=== PATIENT | female | born 1995 | race African-American/Black ===

== ENCOUNTER 2024-11-26 08:01 | Emergency (ER) | payer SELFPAY ==
--- NOTE | 2024-11-26 08:05 | ECG_ITS ---
Test Date: 2024-11-26 08:16:22 Measurements Intervals [place] Rate: 90 P: 48 VT: 156 QRS: 21 QRSD: 90 T: 24 QT: 357 QTc: 438 Interpretive Statements SINUS RHYTHM WITH SINUS ARRHYTHMIA NORMAL ECG No previous ECG available for comparison Electronically Signed On 11-26-2024 08:18:40 COMPUTERIZED TABLE CUTTER by Tod Hollins D.O.
--- OUTSIDE RECORDS SUMMARY | 2024-11-26 08:05 | XMS_ITS | Data Portability ---
Author Organization [facility] Address [address] [place] [address] Care Team Providers Care Cover Operator Name Role Phone MONICO ARMANI Primary Care Provider Assessment No assessment recorded. Plan of Treatment Reminders Order Date Submit Date Provider Last Modified By Organization Details Last Modified Time Details Appointments None recorded. Lab bacterial vaginosis + vaginitis panel, vaginal 2020 021 [place] [facility], [address], [place], [address], 10:11:49 cytology report, thin prep, smear or scraping, cervical or vaginal 2020 021 [place] [facility], [address], [place], [address], 15:10:48 test, urine 2020 [place] In-Office Order, Internal Use Only DO Not Attach Compendium DO Not Attach Compendium, Do Not Delete/merge, [id number] 12:06:12 Referral None recorded. Procedures None recorded. Surgeries None recorded. Imaging None recorded. Medication Orders hydroxyzin e HCl 25 mg tablet 2020 021 [id number], [address], [place], [id number], 09:27:28 sertraline 50 mg tablet 2020 021 [facility] #[id number], [address] [place], [place], [id number], 09:27:19 cyclobenza dena 10 mg tablet 2020 [facility] #[id number], [address] [place], [place], [id number], 10:37:51 Debrox 6.5 % ear drops 2020 [id number], [address] [place], [place], [id number], 11:11:28 Xulane 150 mcg-35 mcg/24 hr transderma l patch [address] [id number], [address] [place], [place], [id number], 11:55:39 Patient TargetsNo targets recorded. Patient Instructions Encounter Date Encounter Id Patient Instructions Last Modified By Organization Details Last Modified Time 04/04/2021 [id number] tonsil stones: care instructions Not available 04/04/2021 11:15:51 09/29/2021 [id number] tonsil stones: care instructions Not available 09/29/2021 11:33:08 learning about control: the patch Not available 09/29/2021 11:32:03 Reason for Referral None Reported. Results Created Date Observation Date Name Description Value Unit Range Abnormal Flag Note LastModifiedBy Organization Detail LastModifiedTime 04/08/20 21 04/09/2021 cytol ogy repor t, thin prep, smear or scrap ing, cervi gal or vagin al diagnosis: COMMEN T NEGAT JAVED FOR INTRA EPITH ELIAL LESIO N OR MALIG KATIE . Not Available [facility] ([facility] [address] [facility] [place], [address], 04/09/2021 15:10:48 04/08/20 21 04/09/2021 cytol ogy repor t, thin prep, smear or scrap ing, cervi gal or vagin al specimen adequacy: MARLO Langford Satis facto ry for evalu ation . Endoc ervic al and/o r squam ous metap lasti c cells (endo cervi gal compo nent) are prese nt. Not Available [facility] ([facility]) [address] [place], [address], 04/09/2021 15:10:48 04/08/20 21 04/09/2021 cytol ogy repor t, thin prep, smear or scrap ing, cervi gal or vagin al clinician provided ICD10: MARLO Langford Z01.4 19 Not Available [facility] ([facility]) [address] [place], [address], 04/09/2021 15:10:48 04/08/20 21 04/09/2021 cytol ogy repor t, thin prep, smear or scrap ing, cervi gal or vagin al performed by: Pauline Gao (ASCP ) Not Available [facility] ([facility]) [address] [place], [address], 04/09/2021 15:10:48 04/08/20 21 04/09/2021 cytol ogy repor t, thin prep, smear or scrap ing, cervi gal or vagin al . . Not Available [facility] ([facility]) [address] [place], [address], 04/09/2021 15:10:48 04/08/20 21 04/09/2021 cytol ogy repor t, thin prep, smear or scrap ing, cervi gal or vagin al note: MARLO Langford The Pap smear is a scree bethanie test desolvin marie to aid in the detec tion of sudarshan ligna nt and malig nant condi tions of the uteri ne cervi x. It is not a diagn ostic proce dure and shoul d not be used as the sole means of detec ting cervi gal cance r. Both false -posi tive and false -nega tive repor ts do occur . Not Available [facility] ([facility]) [address] [place], [address], 04/09/2021 15:10:48 04/08/2004/09/2021 cytol ogy repor t, thin prep, smear or scrap ing, cervi gal or vagin al test methodology: COMMEN T This liqui d based ThinP rep(R ) pap test was randa marie with the use of an image guide robin pantoja. Not Available [facility] ([facility]) [address] [place], [address], 04/09/2021 15:10:48 04/08/2004/09/2021 cytol ogy repor t, thin prep, smear or scrap ing, cervi gal or vagin al . COMMEN T The HPV DNA refle x crite natty were not met with this speci men resul t there fore, no HPV testi ng was perfo rmed. Not Available [facility] ([facility]) [address] [place], [address], 04/09/2021 15:10:48 04/08/2004/11/2021 NUSWA B VAGIN ITIS PLUS (VG+) atopobium vaginae LOW - 0 score Not Available [facility] ([facility]) [address] [place], [address], 04/11/2021 10:11:49 04/08/2004/11/2021 NUSWA B VAGIN ITIS PLUS (VG+) bvab 2 LOW - 0 score Not Available [facility] ([facility]) [address] [place], [address], 04/11/2021 10:11:49 04/08/20 21 04/11/2021 NUSWA B VAGIN ITIS PLUS (VG+) megasphaera 1 LOW - 0 score Calcu late total score by nathaniel blankenship the 3 indiv idual bacte rial vagin osis (BV) marke r score s toget her. Total score is inter prete d as follo ws: Total score 0-1: Indic ates the absen ce of BV. Total score 2: Indet ermin ate for BV. Addit ional clini gal data shoul d be evalu ated to estab heide a diagn osis. Total score 3-6: Indic ates the prese nce of BV. This test was devel oped and its perfo rmanc e naun cteri stics deter mined by [facility]. It has not been clear ed or appro patsy by the Food and Drug Admin istra tion. Not Available [facility] ([facility]) [address] [place], [address], 04/11/2021 10:11:49 04/08/2004/11/2021 NUSWA B VAGIN ITIS PLUS (VG+) cathy albicans, ANN NEGATI VE negati ve Not Available [facility] ([facility]) [address] [place], [address], 04/11/2021 10:11:49 04/08/2004/11/2021 NUSWA B VAGIN ITIS PLUS (VG+) cathy glabrata, ANN NEGATI VE negati ve Not Available [facility] ([facility]) [address] [place], [address], 04/11/2021 10:11:49 04/08/2004/11/2021 NUSWA B VAGIN ITIS PLUS (VG+) trich vag by ANN NEGATI VE negati ve Not Available [facility] ([facility]) [address] [place], [address], 04/11/2021 10:11:49 04/08/20 21 04/11/2021 NUA B VAGIN ITIS PLUS (VG+) chlamydia trachomatis, ANN NEGATI VE negati ve Not Available [facility] ([facility]) [address] [facility], [place], [address], 04/11/2021 10:11:49 04/08/20 21 04/11/2021 NUA B VAGIN ITIS PLUS (VG+) neisseria gonorrhoeae, ANN NEGATI VE negati ve Not Available [facility] ([facility]) [address] [facility], [place], [address], 04/11/2021 10:11:49 09/29/2009/29/2021 pregn sourav test, urine HCG negati ve Not Available In-Office Order Internal Use Only DO Not Attach Compendium DO Not Attach Compendium, Do Not Delete/merge, [id number] 09/29/2021 11:31:50 Result Notes None recorded. Problems Name Problem SNOMED Code Status Onset Date Resolution Date Notes Provider Name and Address Organization Details Recorded Time Dyspareunia 81873205 Active 2017 C[place] - [facility] 8 11:05:23 Bacterial vaginosis 516139926 Completed 201701/29/2020 JOSE ENRIQUE VALERIO Attn: Gaurang blankenship,[address] [place], [address], [place] [facility] 0 14:08:16 Dysuria 41794783 Completed 01/29/2020 JOSE ENRIQUE VALERIO Attn: Gaurang blankenship,[address] [place], [address], [place] [facility] 0 14:12:42 Acute lower urinary tract infection 008603150 Completed 01/29/2020 JOSE ENRIQUE VALERIO Attn: Gaurang blankenship,[address] [place], [address], [place] [facility] 0 14:08:12 Amenorrhea 93849160 Active [place] [facility] 6 18:30:41 Stillbirth 550113271 Completed 2012 Tamera Muir [place], [place] [facility] 7 14:57:17 Past history of stillbirth 565957235 Active Matthew Borjas LPN [place], [place] [facility] 6 16:04:39 Past history of gestational diabetes mellitus 938894585 Active Cb Mccull[place] [facility] [place] 18:30:41 Deliveries by Active Tamera Mu[place] [facility] [place] 14:57:17 Deliveries by [id number] Completed Tamera Mu[place] [facility] [place] 14:57:17 Candidiasis of vagina 79022113 Completed 01/29/2020 JOSE ENRIQUE VALERIO Attn: Gaurang blankenship,[address] [place], [address], [place] [facility] 0 14:12:51 Candidiasis of vagina 03777530 Completed Tamera Mu[place] [facility] 7 14:57:17 Thyroid function tests abnormal 006162940 Active Tamera [place] [facility] [place] 14:57:17 Thyroid function tests abnormal 549713688 Completed Tamera [place] [facility] [place] 14:57:17 Vitamin D deficiency 30039038 Active Tamera [place] [facility] [place] 14:57:17 Vitamin D deficiency 97418349 Completed Tamera [place] [facility] [place] 14:57:17 Abnormal cervical Papanicolao u smear 341287319 Completed 2015 lgsil Tamera Mu[place] [facility] [place] 14:57:17 HPV - Human papillomavi parker test positive Completed 2015 Tamera [place] [facility] [place] 14:57:17 Gestational diabetes mellitus 08780962 Completed 03/07/2020 JOSE ENRIQUE VALERIO Attn: Gaurang blankenship,[address] [facility], [place], [address], [place] [facility] 0 10:11:58 Gestational diabetes mellitus 70144518 Completed Tamera Muir null, [facility] 7 14:57:17 Problem Notes None recorded. Procedures Surgical History Date Name Laterality Status Provider Name and Address Organization Details Recorded Time 0 IUD Removal completed JOSE ENRIQUE VALERIO Attn: Accounting,[address] [facility], [place], [address], [facility] [place] 03/07/2020 11:20:57 8 Date of Last Pap Smear completed Demi Zuluaga MA [facility] 06/22/2018 12:19:22 7 IUD Insertion completed Demi Zuluaga MA [facility] 12/28/2016 12:22:08 6 SECTION (SURG) completed Cb Mccullough [facility] 09/11/2016 20:55:43 5 Control Implant Removal completed Cb Mccullough [facility] 06/20/2015 17:01:50 4 Caesarean Section completed Vargas Gary RN [facility] 06/20/2015 13:01:48 Imaging Results None recorded. Procedure Notes None recorded. Medical Equipment None Reported. Allergies No known drug allergies Medications Name Sig Start Date Stop Date Status Note LastModified by Organization Details LastModified Time multivitami n tablet Take 1 tablet every day by oral route. 01/25 completed Not Available Not Available Not Available cyclobenzap rine 10 mg tablet TAKE 1 TABLET BY MOUTH DAILY AT BEDTIME NEEDED FOR BACK SPASMS 04/04 completed Not Available Not Available Not Available amoxicillin 500 mg capsule take one capsule by mouth four times daily 10/15 completed Not Available Not Available Not Available clindamycin HCl 300 mg capsule 12/28 completed Not Available Not Available Not Available cetirizine 10 mg tablet TK 1 T PO D 10/15 completed Not Available Not Available Not Available azithromyci n 250 mg tablet TAKE 2 TABLETS (500 MG) BY ORAL ROUTE ONCE DAILY FOR 1 DAY THEN 1 TABLET (250 MG) BY ORAL ROUTE ONCE DAILY FOR 4 DAYS 10/31 completed Not Available Not Available Not Available ibuprofen 800 mg tablet TAKE 1 TABLET BY MOUTH THREE TIMES DAILY NEEDED FOR CRAMPS 01/28 completed Not Available Not Available Not Available fluconazole 150 mg tablet Take 1 tablet every day by oral route. 10/31 completed Not Available Not Available Not Available ranitidine 300 mg tablet Take 1 tablet every day by oral route at bedtime. 12/28 completed Not Available Not Available Not Available prednisone 20 mg tablet 10/31 completed Not Available Not Available Not Available ceftriaxone 250 mg solution for injection Take 250 mg by injection route. 10/31 completed Not Available Not Available Not Available metronidazo le 500 mg tablet Take 1 tablet twice a day by oral route as directed for 7 days. 10/15 completed Not Available Not Available Not Available ciprofloxac in 500 mg tablet active Not Available Not Available Not Available sulfamethox azole 800 mg-trimetho prim 160 mg tablet 12/28 completed Not Available Not Available Not Available aspirin 81 mg tablet,carmen yed release Take 1 tablet every day by oral route. 10/06 completed Not Available Not Available Not Available tramadol 50 mg tablet active Not Available Not Available No t Available Condoms-Pre m Lubricated Take 1 device as needed by miscell. route. 10/31 completed Not Available Not Available Not Available Vitamin tablet Take 1 tablet every day by oral route as directed for 90 days. 12/28 completed Not Available Not Available Not Available oxycodone-a cetaminophe n 5 mg-325 mg tablet Take 1 tablet every 6 hours by oral route. 10/31 completed Not Available Not Available Not Available dicyclomine 20 mg tablet Take 1 tablet 4 times a day by oral route. 02/01 completed Not Available Not Available Not Available Ear Wax Removal Drops 6.5 % INSTILL 5 DROPS INTO AFFECTED EAR(S) BY OTIC ROUTE 2 TIMES PER DAY X 4 DAYS 09/29 completed Not Available Not Available Not Available cephalexin 500 mg capsule Take 1 capsule every 12 hours by oral route for 10 days. active Not Available Not Available No t Available ferrous sulfate 325 mg (65 mg iron) tablet Take 1 tablet twice a day by oral route. 12/28 completed Not Available Not Available Not Available ranitidine 150 mg tablet Take 1 tablet twice a day by oral route. 12/28 completed Not Available Not Available Not Available Humulin N NPH U-100 Insulin (isophane susp) 100 unit/mL subcutaneou s 10/06 completed Not Available Not Available Not Available progesteron e micronized 200 mg capsule Take 1 capsule every day by oral route for 30 days. 10/06 completed Not Available Not Available Not Available omeprazole 20 mg capsule,del ayed release Take 1 capsule every day by oral route. 10/31 completed Not Available Not Available Not Available diclofenac sodium 75 mg tablet,carmen yed release 01/28 completed Not Available Not Available Not Available hydroxyzine HCl 25 mg tablet TAKE 1 TABLET BY MOUTH EVERY DAY AT BEDTIME 01/29 completed Not Available Not Available Not Available mupirocin 2 % topical ointment 12/28 completed Not Available Not Available Not Available Pepcid 20 mg tablet Take 1 tablet twice a day by oral route. 10/31 completed Not Available Not Available Not Available fluticasone propionate 50 mcg/actuati on nasal spray,suspe nsion SHAKE LIQUID AND USE 1 SPRAY IN EACH NOSTRIL TWICE DAILY 09/29 completed Not Available Not Available Not Available metformin ER 500 mg tablet,exte nded release 24 hr 12/28 completed Not Available Not Available Not Available sertraline 50 mg tablet Take 1 tablet every day by oral route as directed for 30 days. 01/29 completed Not Available Not Available Not Available ParaGard T 380A 380 square mm intrauterin e device Take 1 device by intrauter ine route. 03/[address] [facility] [place]# [phone] Not Available Not Available Not Available insulin syringe U-100 with needle 0.5 mL 31 gauge x 03/02 completed Not Available Not Available Not Available loratadine 10 mg tablet Take 1 tablet every day by oral route for 30 days. 01/28 completed Not Available Not Available Not Available naproxen 500 mg tablet TAKE 1 TABLET BY MOUTH WITH FOOD EVERY 12 HOURS 01/29 completed Not Available Not Available Not Available progesteron e micronized 100 mg capsule Take 1 capsule twice a day by oral route. 12/28 completed Not Available Not Available Not Available amoxicillin 875 mg-potassiu m clavulanate 125 mg tablet TAKE 1 TABLET BY MOUTH TWICE DAILY active Not Available Not Available No t Available azithromyci n 500 mg tablet Take 1 tablet every day by oral route for 6 days. 10/31 completed Not Available Not Available Not Available Tri-Sprinte c (28) 0.18 mg(7)/0.215 mg(7)/0.25 mg(7)-35 mcg tablet Take 1 tablet every day by oral route as directed for 28 days. 04/04 completed Not Available Not Available Not Available nitrofurant oin monohydrate /macrocryst als 100 mg capsule Take 1 capsule every 12 hours by oral route as directed for 5 days. 03/07 completed Not Available Not Available Not Available lactulose 10 gram/15 mL oral solution Take 15 mL every day by oral route. 02/01 completed Not Available Not Available Not Available Oysco 500/D 500 mg-5 mcg (200 unit) tablet 01/25 completed Not Available Not Available Not Available omeprazole 20 mg tablet,carmen yed release 12/28 completed Not Available Not Available Not Available Calcium with Vitamin D 600 mg-10 mcg (400 unit) tablet Take 1 tablet twice a day by oral route. 10/31 completed Not Available Not Available Not Available Vinate One 60 mg iron-1 mg tablet 12/28 completed Not Available Not Available Not Available PrenaPlus 27 mg iron-1 mg tablet Take one tablet by by mouth daily active Not Available Not Available No t Available OneTouch Verio test strips 10/06 completed Not Available Not Available Not Available calcium 600 mg (as carbonate)- vitamin D3 20 mcg (800 unit) tablet Take 1 tablet twice a day by oral route for 30 days. 01/25 completed Not Available Not Available Not Available OneTouch Delica Lancets 30 gauge 10/06 completed Not Available Not Available Not Available Linzess 145 mcg capsule Take 1 capsule every day by oral route. 02/01 completed Not Available Not Available Not Available Super Thin Lancets 28 gauge 10/06 completed Not Available Not Available Not Available Xulane 150 mcg-35 mcg/24 hr transdermal patch APPLY 1 PATCH TO THE SKIN EVERY WEEK FOR 3 WEEKS THEN OFF FOR 1 WEEK active Not Available Not Available No t Available ID NOW COVID-19 Test Kit DIRECTED 09/29 completed Not Available Not Available Not Available Vitals Date Recorded Body height Provider Name an d Address Organization Details Last Updated DateTime 11/12/2020 157.48 cm Demi Marcelino MA [facility] 2020 14:27:36 Date Recorded Body height Provider Name an d Address Organization Details Last Updated DateTime 01/29/2021 157.48 cm Demi Marcelino MA [facility] 2020 09:26:31 Date Recorded Body height Provider Name an d Address Organization Details Last Updated DateTime 04/04/2021 157.48 cm Demi Marcelino MA [facility] 2020 10:37:41 Date Recorded Body height Body mass index (BMI) Body weight Heart rate Body temperature Oxygen saturation Oxygen saturation in Arterial blood by Pulse oximetry Systolic blood pressure Diastolic blood pressure Provider Name and Address Organization Details Last Updated DateTime 157.48 cm 37.8 kg/m2 57749.8 3 g 106 /min 98.6 [degF] 99 % 99 % 120 mm[Hg] 84 mm[Hg] Demi Marcelino MA [facility] 11:05:08 Date Recorded Body height Body mass index (BMI) Body weight Heart rate Body temperature Oxygen saturation Oxygen saturation in Arterial blood by Pulse oximetry Systolic blood pressure Diastolic blood pressure Provider Name and Address Organization Details Last Updated DateTime 157.48 cm 37.1 kg/m2 96929.8 5 g 97 /min 99.8 [degF] 100 % 100 % 118 mm[Hg] 70 mm[Hg] Demi Marcelino MA [facility] 11:11:03 Social History Question Answer Notes LastModified by Organizat ion Details LastModified Time Tobacco Smoking Status Never Smoker Vargas Gary RN [facility], [facility] 06/20/2015 13:01:48 Do You Have An Advance Directive? No [email or web address] Information not available 06/20/2015 What Is Your Level Of Alcohol Consumption? None [email or web address] Information not available 06/20/2015 If You Are , What Was Your Level Of Alcohol Consumption Prior To ? None [email or web address] Information not available 03/19/2016 Is Anesthesia Consult Planned? Yes Repeat [email or web address] Information not available 06/08/2016 Plan Yes REPEAT [email or web address] Information not available 06/08/2016 Are You Blind Or Do You Have Difficulty Seeing? No [email or web address] Information not available 10/31/2018 Is Blood Transfusion Acceptable In An Emergency? Yes [email or web address] Information not available 06/20/2015 What Is Your Level Of Caffeine Consumption? Occasional [email or web address] Information not available 06/20/2015 Live With Cats/exposure To Cat Litter No Information not available 03/19/2016 How Much Tobacco Do You Chew? None Information not available 06/20/2015 Are You Currently Employed? No Information not available 11/04/2016 Are You Deaf Or Do You Have Serious Difficulty Hearing? No [email or web address] Information not available 10/31/2018 What Type Of Diet Are You Following? REGULAR [email or web address] Information not available 06/20/2015 Which Illicit Or Recreational Drugs Have You Used? None Information not available 11/04/2016 Do You Or Have You Ever Used E-cigarettes Or Vape? Never Used Electronic Cigarettes Information not available 11/12/2020 Education 12 [email or web address] Information no t available 06/20/2015 What Is The Highest Grade Or Level Of School You Have Completed Or The Highest Degree You Have Received? [id number] [email or web address] Information not available 10/31/2018 How Many Days Of Moderate To Strenuous Exercise, Like A Brisk Walk, Did You Do In The Last 7 Days? 7 [email or web address] Information not available 10/31/2018 On Those Days That You Engage In Moderate To Strenuous Exercise, How Many Minutes, On Average, Do You Exercise? 60 [email or web address] Information not available 10/31/2018 Have There Been Any Changes To Your Family Or Social Situation? No Information not available 03/19/2016 How Hard Is It For You To Pay For The Very Basics Like Food, Housing, Medical Care, And Heating? [id number] [email or web address] Information not available 10/31/2018 Frequent Air Travel No Information not available 03/19/2016 Live Alone Or With Others? With Others [email or web address] Information not available 06/20/2015 Marital Status Single [email or web address] Informatio n not available 03/19/2016 What Was The Date Of Your Most Recent Tobacco Screening? 01/29/2021 Information not available 01/29/2021 How Many Children Do You Have? 2 [email or web address] Information not available 12/28/2016 Are There Any Occupational Health Risks Where You Work? None Information not available 03/19/2016 Performs Monthly Self-breast Exam? No [email or web address] Information not available 06/20/2015 Do You Use Protection During Sex? No [email or web address] Information not available 06/20/2015 What Is Your Relationship Status? Single [email or web address] Information not available 06/20/2015 Seat Belts Used Routinely Yes [email or web address] Information not available 06/20/2015 Are You Sexually Active? Yes [email or web address] Information not available 06/20/2015 Do You Have Smoke And Carbon Monoxide Detectors In Your Home? No Information not available 03/19/2016 Are You Passively Exposed To Smoke? No Information not available 03/19/2016 Do You Or Have You Ever Used Smokeless Tobacco? Never Used Smokeless Tobacco Information not available 11/12/2020 How Much Tobacco Do You Smoke? No [email or web address] Information not available 03/19/2016 Smoking Pre- No Information not available 03/19/2016 General Stress Level Low Information not available 06/20/2015 Do You Feel Stressed (tense, Restless, Nervous, Or Anxious, Or Unable To Sleep At Night)? [id number] [email or web address] Information not available 10/31/2018 Do You Use Sunscreen Routinely? No [email or web address] Information not available 06/20/2015 Supplements Vitamin Information not available 03/19/2016 On What Date Was Tobacco Cessation Counseling Provided? 01/29/2021 Information not available 01/29/2021 How Many Years Have You Smoked Tobacco? 0 Information not available 03/19/2016 Sex: Female Functional Status Question Answer Note LastModified by Organization D etails LastModified Time Do you have difficulty walking or climbing stairs? No [email or web address] Information not available 10/31/2018 Do you have difficulty doing errands alone? No [email or web address] Information not available 10/31/2018 Do you have difficulty dressing or bathing? No [email or web address] Information not available 10/31/2018 What is your exercise level? None [email or web address] Information not available 06/20/2015 Mental Status Question Answer Note LastModified by Organization D etails LastModified Time Do you have difficulty concentrating, remembering or making decisions? No [email or web address] Information no t available 10/31/2018 Family History Relationship Description Onset Age of this Age Resolved Age Notes LastModified by Organization Details LastModified Time Maternal Grandmother Asthma 62 [email or web address] Not available 08/2016 18:30:32 Maternal Grandmother Hypertensive disorder mwasserman Not available 07/28 18:30:32 Maternal Grandmother Diabetes mellitus [email or web address] Not available 07/28 18:30:32 Medical History Condition Response Anxiety/Depression Y Other N High Blood Pressure N Breast Cancer N Head Trauma/Injury Y Blood Clots N Depression N Lung Disease N Breast Problem N Anesthesia Complications N Headaches/Migraines N Anxiety Disorder N Muscle, Joint, or Bone Problems N Head Injury/Concussion N Infertility N Polyps N Acid Reflux (GERD) N Cancer N Vitamin D Deficiency Y Endometriosis N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 Encourage regular exercise; Encourage no tobacco use; Encourage regular mammograms starting age [age] year old female presents today for WWE. JOSE ENRIQUE VALERIO Attn: Accounting,[address] [place], [address], [facility] [place] 04/08/2021 11:28:51 09/29/2021 text/html 26 year old andrzej mendez presents today for control discussion. She is interested in starting control patches, she remembers being on the patches in the past when she was following with Dr. Mccullough but does not remember why she stopped them. Most recently she was on the pills but currently only using condoms. She has no gynecological complaints today. Pap smear up to date 03/2021. No concerns for , LMP 09/10/2021. Still dealing with tonsil stones and is requesting a medication to help prevent stones, states someone she knows has the same issue and mentioned antibiotics. States she will remove the stones herself at home when they present, admits to them smelling very bad when she removes them. Admits to snoring at night. Denies current stones right now. Denies fever, chills, and sore throat. JOSE ENRIQUE VALERIO Attn: Accounting,[address] [place], [address], [facility] [place] 09/29/2021 13:13:18 OBGyn Episode Ob Episode Information Episode Created Date Number of Fetuses Patient Bloodtype Patient rh Status Prepregnancy Weight lbs Domestic Partner Domestic Partner Phone Father Name Health And Safety Inspector Status 06/20/20 15 1 CLOSED Fetus Data First Name Last Name Admitted to NICU Weight (g) Sex Living Outcome Pediatric Complications Fetus ID Race Codes Race Delivery Type 5414.75 45 F Full Term [id number] Primary Carl Calculation Initial Carl Date Initial Exam Date Initial Exam Provider Initial Ultrasound Date Last Menstrual Period Date Ultra Sound Weeks Gestation 0 Eighteen To Twenty Week Carl Update Ultra Sound Date Fundal Height At Umbil Quickening Date Ultra Sound Latest Weeks Gestation Final Carl Confirmed By Final Carl Confirmed Date Final Carl Date Ultra Sound Latest Days Gestation 0 0 Menstrual History Last Menstrual Date Menses Monthly On Bcp Conception Prior Menses Frequency Hcg Plus Date Menarche Onset Age Delivery Information Delivery Date Delivery Type Labor Anesthesia Weeks Gestation Incision Type Labor Labor Length Hrs Delivered By Post Complications Tubal Sterilization Discharge Date Comments 4 Regional-Sp inal 38 true 0 Astrid GDM Discharge Information Feeding Method Contraceptive Method Maternal HG B and HCT Levels Ob Episode Information Episode Created Date Number of Fetuses Patient Bloodtype Patient rh Status Prepregnancy Weight lbs Domestic Partner Domestic Partner Phone Father Name Health And Safety Inspector Status 06/20/20 15 1 CLOSED Fetus Data First Name Last Name Admitted to NICU Weight (g) Sex Living Outcome Pediatric Complications Fetus ID Race Codes Race Delivery Type 226.796 F Demise [id number] Vaginal Carl Calculation Initial Carl Date Initial Exam Date Initial Exam Provider Initial Ultrasound Date Last Menstrual Period Date Ultra Sound Weeks Gestation 0 Eighteen To Twenty Week Carl Update Ultra Sound Date Fundal Height At Umbil Quickening Date Ultra Sound Latest Weeks Gestation Final Carl Confirmed By Final Carl Confirmed Date Final Carl Date Ultra Sound Latest Days Gestation 0 0 Menstrual History Last Menstrual Date Menses Monthly On Bcp Conception Prior Menses Frequency Hcg Plus Date Menarche Onset Age Delivery Information Delivery Date Delivery Type Labor Anesthesia Weeks Gestation Incision Type Labor Labor Length Hrs Delivered By Post Complications Tubal Sterilization Discharge Date Comments 3 None 25 false 12 [place] n Discharge Information Feeding Method Contraceptive Method Maternal HG B and HCT Levels Ob Episode Information Episode Created Date Number of Fetuses Patient Bloodtype Patient rh Status Prepregnancy Weight lbs Domestic Partner Domestic Partner Phone Father Name Health And Safety Inspector Status 03/19/20 16 1 O Positive 170 renetta stevens CLOSED Fetus Data First Name Last Name Admitted to NICU Weight (g) Sex Living Outcome Pediatric Complications Fetus ID Race Codes Race Delivery Type Ramona Bradley Stevens false 3118.44 5 F true Full Term [id number] Afric an Ameri can Repeat Problems Problem Notes repeat , having a b emma girl, name is Carlene Stevens, breast feeding. ppbc paragard 10 yr IUD. TDaP given 07/14/2016 Nalinikamran LONG. infection control specialist to be decided. 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 09/08/2016 Problem Name Start Date End Date Resolution Snomed Code Not e Thyroid function tests abnormal 591490244 Vitamin D deficiency [id number] Deliveries by [id number] Stillbirth 10/18/2012 [id number] Candidiasis of vagina 81649593 Abnormal cervical Papanicolaou smear 03/19/2016 [id number] lgsil HPV - Human papillomavirus t est positive 03/19/2016 [id number] Gestational diabetes mellitus [id number] Carl Calculation Initial Carl Date Initial Exam Date Initial Exam Provider Initial Ultrasound Date Last Menstrual Period Date Ultra Sound Weeks Gestation 09/23/2016 03/19/2016 [email or web address] 03/19/2016 11/18/2015 13 Eighteen To Twenty Week Carl Update Ultra Sound Date Fundal Height At Umbil Quickening Date Ultra Sound Latest Weeks Gestation Final Carl Confirmed By Final Carl Confirmed Date Final Carl Date Ultra Sound Latest Days Gestation 0 [email or web address] 06/08/2016 09/23/20 16 0 Pre- Flowsheet Flowsheet Date 03/19/2016 Mon Score Blood Edema Fundus Height Fundus Units Glucose Ketones Leukocytes Nitrite Labor Signs Protein Cervic Dilation Cervic Effacement Cervic Station neg none 12 wks none trace 1+ Type Weight in lbs Pre/Post Dialysis Refused 197.412031076413 BP Diastolic BP Location Tested BP Systolic BP Type 66 132 sitting Fetus Heart Rate Present Fetus Movement Comments Flowsheet Date 04/03/2016 Mon Score Blood Edema Fundus Height Fundus Units Glucose Ketones Leukocytes Nitrite Labor Signs Protein Cervic Dilation Cervic Effacement Cervic Station Type Weight in lbs Pre/Post Dialysis Refused BP Diastolic BP Location Tested BP Systolic BP Type Fetus Heart Rate Present Fetus Movement Comments Flowsheet Date 04/22/2016 Mon Score Blood Edema Fundus Height Fundus Units Glucose Ketones Leukocytes Nitrite Labor Signs Protein Cervic Dilation Cervic Effacement Cervic Station neg none 17 cm none negative none neg Type Weight in lbs Pre/Post Dialysis Refused 202.920863989330 BP Diastolic BP Location Tested BP Systolic BP Type 68 114 sitting Fetus Heart Rate Present A 160 Present Fetus Movement A Yes Comments Flowsheet Date 05/25/2016 Mon Score Blood Edema Fundus Height Fundus Units Glucose Ketones Leukocytes Nitrite Labor Signs Protein Cervic Dilation Cervic Effacement Cervic Station Type Weight in lbs Pre/Post Dialysis Refused BP Diastolic BP Location Tested BP Systolic BP Type Fetus Heart Rate Present Fetus Movement Comments Flowsheet Date 06/08/2016 Mon Score Blood Edema Fundus Height Fundus Units Glucose Ketones Leukocytes Nitrite Labor Signs Protein Cervic Dilation Cervic Effacement Cervic Station neg none 26 cm none negative neg Type Weight in lbs Pre/Post Dialysis Refused 204.815881864880 BP Diastolic BP Location Tested BP Systolic BP Type 60 124 sitting Fetus Heart Rate Present A 156 Present Fetus Movement A Yes Comments Ventral hernia prominent no symptoms presently. Flowsheet Date 07/14/2016 Mon Score Blood Edema Fundus Height Fundus Units Glucose Ketones Leukocytes Nitrite Labor Signs Protein Cervic Dilation Cervic Effacement Cervic Station neg none 30 cm none negative none neg Type Weight in lbs Pre/Post Dialysis Refused 208.710344106022 BP Diastolic BP Location Tested BP Systolic BP Type 70 124 sitting Fetus Heart Rate Present A 144 Present Fetus Movement A Yes Comments [facility] refer for GDM Flowsheet Date 07/28/2016 Mon Score Blood Edema Fundus Height Fundus Units Glucose Ketones Leukocytes Nitrite Labor Signs Protein Cervic Dilation Cervic Effacement Cervic Station neg trace 38 cm none negative none neg Type Weight in lbs Pre/Post Dialysis Refused 210.891485222868 BP Diastolic BP Location Tested BP Systolic BP Type 68 112 sitting Fetus Heart Rate Present A 144 Present Fetus Movement A Yes Comments VENTRAL HERNIA DIASTASIS REC TII Flowsheet Date 08/11/2016 Mon Score Blood Edema Fundus Height Fundus Units Glucose Ketones Leukocytes Nitrite Labor Signs Protein Cervic Dilation Cervic Effacement Cervic Station neg none 40 cm none trace none neg Type Weight in lbs Pre/Post Dialysis Refused 209.251478831140 BP Diastolic BP Location Tested BP Systolic BP Type 68 134 sitting Fetus Heart Rate Present A 147 Present Fetus Movement A Yes Comments MRSA nasal swab performed to day. GDM now requiring insulin. Flowsheet Date 08/26/2016 Mon Score Blood Edema Fundus Height Fundus Units Glucose Ketones Leukocytes Nitrite Labor Signs Protein Cervic Dilation Cervic Effacement Cervic Station Type Weight in lbs Pre/Post Dialysis Refused BP Diastolic BP Location Tested BP Systolic BP Type 68 130 sitting Fetus Heart Rate Present Fetus Movement Comments Flowsheet Date 08/26/2016 Mon Score Blood Edema Fundus Height Fundus Units Glucose Ketones Leukocytes Nitrite Labor Signs Protein Cervic Dilation Cervic Effacement Cervic Station neg 1+ 38 cm none negative Pressure neg Type Weight in lbs Pre/Post Dialysis Refused 213.329688679471 BP Diastolic BP Location Tested BP Systolic BP Type 68 130 sitting Fetus Heart Rate Present A 160 Present Fetus Movement A Yes Comments Dr. Mtz from [facility] recs n ot to deliver until 39wks. Appx 09/18/16 repeat c- section date. Flowsheet Date 09/02/2016 Mon Score Blood Edema Fundus Height Fundus Units Glucose Ketones Leukocytes Nitrite Labor Signs Protein Cervic Dilation Cervic Effacement Cervic Station neg none 37.5 cm none negative Backpain neg Type Weight in lbs Pre/Post Dialysis Refused BP Diastolic BP Location Tested BP Systolic BP Type 68 130 Fetus Heart Rate Present A 150 Present Fetus Movement A Yes Comments [facility] Dr. Mtz called and esdras mmends delivery at 39 weeks by repeat Flowsheet Date 09/08/2016 Mon Score Blood Edema Fundus Height Fundus Units Glucose Ketones Leukocytes Nitrite Labor Signs Protein Cervic Dilation Cervic Effacement Cervic Station neg none 38 cm none negative Backpain neg Type Weight in lbs Pre/Post Dialysis Refused 209.426334235032 BP Diastolic BP Location Tested BP Systolic BP Type 68 134 sitting Fetus Heart Rate Present A 145 Present Fetus Movement A Yes Comments Flowsheet Date 10/06/2016 Mon Score Blood Edema Fundus Height Fundus Units Glucose Ketones Leukocytes Nitrite Labor Signs Protein Cervic Dilation Cervic Effacement Cervic Station Type Weight in lbs Pre/Post Dialysis Refused 187.472692427323 BP Diastolic BP Location Tested BP Systolic BP Type 82 124 standing Fetus Heart Rate Present Fetus Movement Comments Flowsheet Date 11/04/2016 Mon Score Blood Edema Fundus Height Fundus Units Glucose Ketones Leukocytes Nitrite Labor Signs Protein Cervic Dilation Cervic Effacement Cervic Station Type Weight in lbs Pre/Post Dialysis Refused 189.287988323247 BP Diastolic BP Location Tested BP Systolic BP Type 86 114 sitting Fetus Heart Rate Present Fetus Movement Comments Menstrual History Last Menstrual Date Menses Monthly On Bcp Conception Prior Menses Frequency Hcg Plus Date Menarche Onset Age 0211/18/2015 15 Genetic Screening And Infection History Question Response Note Patient's Age Will Be 35 Yea rs Or Older At Estimated Date of Delivery false Thalassemia (Kinyarwanda, Wallisian, Mediterranean, Or Background): MCV < 80 false Neural Tube Defect (Meningomyelocele, Spina Bifi da, Or Anencephaly) false Congenital Heart Defect false Down Syndrome false Kristopher-Sachs (eg, Christian, Cajun, Upper Sorbian-Indian) f alse Marina Disease false Sickle Cell Disease Or Trait () false Hemophilia Or Other Blood Disorders false Muscular Dystrophy false Cystic Fibrosis false Marky's Chorea false Mental Retardation/Autism false If Yes, Was Person Tested For Fragile X? false Other Inherited Genetic Or Chromosomal Disorder false Maternal Metabolic Disorder (eg, Type 1 Diabetes , PKU) false Patient Or Baby's Father Had A Child With Defects Not Listed Above false Recurrent Loss, Or A Stillbirth true 2012 Medications (including Suppl ements, Vitamins, Herbs, OTC Drugs), Illicit/Recreational Drugs, Alcohol true see list If Yes, Agent(s) And Strength/Dosage false Any Other Genetic History false Live With Someone With TB Or Exposed To TB false Patient Or Partner Has History Of Genital Herpes false Rash Or Viral Illness Since Last Menstrual Perio d false History Of STD, Gonorrhea, Chlamydia, HPV, Syphi lis false Other Infection History false Plans and Education First Trimester Discussed Date Discussion Item Discussion Note Discuss ed By 04/03/2016 Anticipated course of care [email or web address] 04/03/2016 Alcohol [email or web address] 04/03/2016 Intimate partner violence rh [email or web address] 04/03/2016 Environmental/work hazards r [email or web address] 04/03/2016 Screening for aneuploidy rhu [email or web address] 04/03/2016 Nutrition counseling ; special diet; dietary precautions (mercury, listeriosis) [email or web address] 04/03/2016 Childbirth classes/hospital facilities [email or web address] 04/03/2016 HIV and other routine tests [email or web address] 04/03/2016 Risk factors identif ied by history [email or web address] 04/03/2016 Weight gain counseling rhunl [email or web address] 04/03/2016 Exercise [email or web address] 04/03/2016 Teratogens [email or web address] 04/03/2016 Use of any medicatio ns (including supplements, vitamins, herbs, or OTC drugs) [facility] 04/03/2016 breastfeed [email or web address] 04/03/2016 [email or web address] 04/03/2016 Tobacco/smoking cess ation counseling (ask, advise, assess, assist, and arrange) [email or web address] 04/03/2016 Illicit/recreational drugs r [email or web address] 04/03/2016 Dental care [email or web address] 04/03/2016 Travel [email or web address] 04/03/2016 [facility] 04/03/2016 Indications for ultrasonography [facility] 04/03/2016 Avoidance of saunas or hot tubs [facility] 04/03/2016 Toxoplasmosis precautions (cats/raw meat) [place] [id number] Second Trimester Discussed Date Discussion Item Discussion Note Discuss ed By 06/08/2016 [address] a care provider Dr. Naomie alejandre MD [facility]5 06/08/[address] [place] 06/08/2016 Depression screening (when indicated) [place] 06/08/2016 Abnormal lab values [facility] w 06/08/2016 Signs and symptoms of labor [email or web address] 06/08/2016 Intimate partner violence [email or web address] 06/08/2016 Tobacco/smoking cess ation counseling (ask, advise, assess, assist, and arrange) [place] [address] Third Trimester Discussed Date Discussion Item Discussion Note Discuss ed By 09/02/2016 Intimate partner violence [facility] 09/02/2016 Anesthesia plans [facility] 09/02/2016 Rotan education (n ewborn screening, jaundice, SIDS/safe sleeping position, car seat) [facility] 09/02/2016 Circumcision [facility] 09/02/2016 Postterm counseling [facility] 09/02/2016 movement monitoring [facility] 09/02/2016 [facility] 09/02/2016 Labor signs [facility] 09/02/2016 depression [facility] 09/02/2016 Family medical leave or disability forms [facility] 09/02/2016 Tobacco/smoking cess ation counseling (ask, advise, assess, assist, and arrange) [facility] 09/02/2016 Trial of labor after (TOLAC) counseling [facility] 09/02/2016 Signs and symptoms of preeclampsia [facility] Delivery Information Delivery Date Delivery Type Labor Anesthesia Weeks Gestation Incision Type Labor Labor Length Hrs Delivered By Post Complications Tubal Sterilization Discharge Date Comments 6 None Regional-Sp inal 38.2 Low Transvers e false Dr Mccullough None false 09/13/2016 Dr. Vee blankenship Discharge Information Feeding Method Contraceptive Method Maternal HG B and HCT Levels Bottle Ob Episode Information Episode Created Date Number of Fetuses Patient Bloodtype Patient rh Status Prepregnancy Weight lbs Domestic Partner Domestic Partner Phone Father Name Health And Safety Inspector Status 10/06/20 16 1 DELETED Carl Calculation Initial Carl Date Initial Exam Date Initial Exam Provider Initial Ultrasound Date Last Menstrual Period Date Ultra Sound Weeks Gestation 0 Eighteen To Twenty Week Carl Update Ultra Sound Date Fundal Height At Umbil Quickening Date Ultra Sound Latest Weeks Gestation Final Carl Confirmed By Final Carl Confirmed Date Final Carl Date Ultra Sound Latest Days Gestation 0 0 Menstrual History Last Menstrual Date Menses Monthly On Bcp Conception Prior Menses Frequency Hcg Plus Date Menarche Onset Age Delivery Information Delivery Date Delivery Type Labor Anesthesia Weeks Gestation Incision Type Labor Labor Length Hrs Delivered By Post Complications Tubal Sterilization Discharge Date Comments 6 Regional-Ep idural 38 false Discharge Information Feeding Method Contraceptive Method Maternal HG B and HCT Levels
--- OUTSIDE RECORDS SUMMARY | 2024-11-26 08:05 | XMS_ITS | CONTINUITY OF CARE DOCUMENT ---
Author Name bailey avalos Address Unknown Organization [facility] Address [address] [place] [address] Phone [phone] Care Team Providers Care Mobile Service Rv Technician Name Role Phone Kameron Vera MD Unavailable [phone] JOSH LIN MD Unavailable INSURANCE PROVIDERS Payer name Policy type / Coverage type [employer] party ID [place] MEDICAID (2) Medicaid [id number]
--- OUTSIDE RECORDS SUMMARY | 2024-11-26 08:05 | XMS_ITS | Data Portability ---
Author Organization [facility] [place] Address [address] [place] [address] [place] [address] Assessment No assessment recorded. Plan of Treatment Reminders Order Date Submit Date Provider Last Modified By Organization Details Last Modified Time Details Appointments None recorded. Lab None recorded. Referral None recorded. Procedures None recorded. Surgeries None recorded. Imaging US, obstetric, nuchal translucenc y 2022 023 JOSE F [facility], [address], [address], [place], [address], 3 22:20:53 US, obstetric, 2nd or 3rd trimester 2022 023 [facility], [address], [address], [place], [address], 3 12:20:14 Medication Orders None recorded. Patient TargetsNo targets recorded. Patient InstructionsNo instructions recorded. Reason for Referral None Reported. Results Created Date Observation Date Name Description Value Unit Range Abnormal Flag Note LastModifiedBy Organization Detail LastModifiedTime 12/04/1912/04/2022 CT/GC AND TRICH OMONA S VAGIN ELENA (RRNA ), URINE chlamydia trachomatis, PCR Negati ve negati ve Not Available [facility] (Lab) [address], [place], [address], 12/05/2022 14:42:51 12/04/19 23 12/04/2022 CT/GC AND TRICH OMONA S VAGIN ELENA (RRNA ), URINE neisseria gonorrhoeae, PCR Negati ve negati ve Not Available [facility] (Lab) [address], [place], [address], 12/05/2022 14:42:51 12/04/19 23 12/04/2022 CT/GC AND TRICH OMONA S VAGIN ELENA (RRNA ), URINE trichomonas vaginalis ribosomal RNA (rrna) Negati ve negati ve Not Available [facility] (Lab) [address], [place], [address], 12/05/2022 14:42:51 12/04/19 23 12/04/2022 CBC W/DIF F WBC 4.1 10'3/ uL 3.6-10 .2 Not Available [facility] (Lab) [address], [place], [address], 12/05/2022 19:32:37 12/04/19 23 12/04/2022 CBC W/DIF F RBC 3.58 10'6/ uL (based on docume nted legal sex) 4.10-5 .30 low Not Available [facility] (Lab) [address], [place], [address], 12/05/2022 19:32:37 12/04/19 23 12/04/2022 CBC W/DIF F HGB 11.6 g/dL (based on docume nted legal sex) 11.9-1 5.8 low Not Available [facility] (Lab) [address], [place], [address], 12/05/2022 19:32:37 12/04/19 23 12/04/2022 CBC W/DIF F HCT 34.7 % (based on docume nted legal sex) 37.4-4 8.3 low Not Available [facility] (Lab) [address], [place], [address], 12/05/2022 19:32:37 12/04/19 23 12/04/2022 CBC W/DIF F MCV 96.9 fL 82.0-9 9.0 Not Available [facility] (Lab) [address], [place], [address], 12/05/2022 19:32:37 12/04/19 23 12/04/2022 CBC W/DIF F MCH 32.4 pg 27.0-3 3.0 Not Available [facility] (Lab) [address], [place], [address], 12/05/2022 19:32:37 12/04/19 23 12/04/2022 CBC W/DIF F MCHC 33.4 g/dL 32.0-3 6.0 Not Available [facility] (Lab) [address], [place], [address], 12/05/2022 19:32:37 12/04/19 23 12/04/2022 CBC W/DIF F RDW 12.9 % 11.0-1 5.0 Not Available [facility] (Lab) [address], [place], [address], 12/05/2022 19:32:37 12/04/19 23 12/04/2022 CBC W/DIF F plt 179 10'3/ uL 150-45 0 Not Available [facility] (Lab) [address], [place], [address], 12/05/2022 19:32:37 12/04/19 23 12/04/2022 CBC W/DIF F MPV 11.4 fL 9.8-12 .7 Not Available [facility] (Lab) [address], [place], [address], 12/05/2022 19:32:37 12/04/19 23 12/04/2022 CBC W/DIF F NRBC's 0.0 % 0 Not Available [facility] (Lab) [address], [place], [address], 12/05/2022 19:32:37 12/04/19 23 12/04/2022 CBC W/DIF F absolute NRBCs 0.0 10'3/ uL 0 Not Available [facility] (Lab) [address], [place], [address], 12/05/2022 19:32:37 12/04/19 23 12/04/2022 CBC W/DIF F neutrophils 62.1 % 37.0-7 2.0 Not Available [facility] (Lab) [address], [place], [address], 12/05/2022 19:32:37 12/04/19 23 12/04/2022 CBC W/DIF F lymphocytes 26.8 % 16.0-4 8.0 Not Available [facility] (Lab) [address], [place], [address], 12/05/2022 19:32:37 12/04/19 23 12/04/2022 CBC W/DIF F monocytes 10.0 % 4.0-14 .0 Not Available [facility] (Lab) [address], [place], [address], 12/05/2022 19:32:37 12/04/19 23 12/04/2022 CBC W/DIF F eosinophils 0.7 % 0.0-9. 0 Not Available [facility] (Lab) [address], [place], [address], 12/05/2022 19:32:37 12/04/19 23 12/04/2022 CBC W/DIF F basophils 0.2 % 0.0-2. 0 Not Available [facility] (Lab) [address], [place], [address], 12/05/2022 19:32:37 12/04/19 23 12/04/2022 CBC W/DIF F immature granulocytes 0.2 % no define d refere nce range Not Available [facility] (Lab) [address], [place], [address], 12/05/2022 19:32:37 12/04/19 23 12/04/2022 CBC W/DIF F absolute neutrophils 2.6 10'3/ uL 1.1-6. 0 Not Available [facility] (Lab) [address], [place], [address], 12/05/2022 19:32:37 12/04/19 23 12/04/2022 CBC W/DIF F absolute lymphocytes 1.1 10'3/ uL 0.7-3. 4 Not Available [facility] (Lab) [address], [place], [address], 12/05/2022 19:32:37 12/04/19 23 12/04/2022 CBC W/DIF F absolute monocytes 0.4 10'3/ uL 0.3-1. 0 Not Available [facility] (Lab) [address], [place], [address], 12/05/2022 19:32:37 12/04/19 23 12/04/2022 CBC W/DIF F absolute eosinophils 0.0 10'3/ uL 0.0-0. 6 Not Available [facility] (Lab) [address], [place], [address], 12/05/2022 19:32:37 12/04/19 23 12/04/2022 CBC W/DIF F absolute basophils 0.0 10'3/ uL 0.0-0. 1 Not Available [facility] (Lab) [address] [place], [address], 12/05/2022 19:32:37 12/04/19 23 12/04/2022 CBC W/DIF F absolute immature granulocytes 0.0 10'3/ uL 0.00-0 .10 2022 2:31 AM: P indic ates parti al resul ts on a panel have been relea sed. Addit ional resul ts will follo w. 2022 2:31 AM: This resul t has been final verif ied. No addit ional or moctezuma ed resul ts are expec sacha. Not Available [facility] (Lab) [address] [place], [address], 12/05/2022 19:32:37 12/04/19 23 12/04/2022 HEPAT ITIS B SURFA CE ANTIG EN hepatitis B surface antigen Non-re active non-re active This assay was perfo rmed using [employer] ratio n reage nts and test kits. Value s obtai cynthia with other assay metho ds or kits canno t be used inter moctezuma eably . Not Available [facility] (Lab) [address], [place], [address], 12/05/2022 19:32:38 12/04/19 23 12/04/2022 HIV 1/2 ANTIG EN/AN TIBOD Y, REFLE X CONFI RMATI ON HIV antigen/anti body Nonrea ctive nonrea ctive HIV-1 antig en and HIV-1 /HIV- 2 antib odies were not detec sacha. No labor atory evide nce of HIV infec tion. Not Available [facility] (Lab) [address], [place], [address], 12/05/2022 19:32:39 12/04/19 23 12/04/2022 HEPAT ITIS C ANTIB OLIVER SCREE N, REFLE X TO CONFI RMATI ON hepatitis C antibody Non-re active non-re active Antib odies to HCV Not Detec sacha, does not exclu de the possi bilit y of expos ure to HCV. Not Available [facility] (Lab) [address], [place], [address], 12/05/2022 19:32:40 12/04/19 23 12/04/2022 TSH, REFLE X FREE T4 TSH 0.47 uIU/m L 0.30-5 .33 Not Available [facility] (Lab) [address], [place], [address], 12/05/2022 19:32:41 12/04/19 23 12/04/2022 RUBEL LA IGG ANTIB OLIVER, QUANT rubella antibodies, IgG Reacti ve reacti ve Not Available [facility] (Lab) [address], [place], [address], 12/05/2022 19:32:41 12/04/19 23 12/04/2022 RUBEL LA IGG ANTIB OLIVER, QUANT rubella antibodies, IgG quant 25.2 IU/mL >=10 Non-r eacti ve (Non- Immun e) <10 IU/mL React jhon (Immu ne) > or = 10 IU/mL Not Available [facility] (Lab) [address], [place], [address], 12/05/2022 19:32:41 12/04/19 23 12/04/2022 HEMOG LOBIN A1C hemoglobin A1C 5.5 % 0-5.6 The Ameri can Diabe leticia Assoc iatio n recom mends that a prima ry goal of thera py gianni kelly be a HBA1C of < 7% and that physi cians shoul d reeva luate the treat ment regim en in patie nts with HBA1C value s consi stent ly > 8%. <5.7% Genesis l 5.7 - 6.4% Incre ased risk for diabe leticia >=6.5 % Diagn ostic of diabe leticia <7.0% Goal of thera py >8.0% Actio n sugge sted Not Available [facility] (Lab) [address], [place], [address], 12/05/2022 19:32:42 12/04/19 23 12/04/2022 TYPE/ RH/SC REEN ABO/Rh type O POS Not Available [facility] (Lab) [address], [place], [address], 12/05/2022 19:32:43 12/04/19 23 12/04/2022 TYPE/ RH/SC REEN antibody screen NEG Not Available [facility] (Lab) [address] [place], [address], 12/05/2022 19:32:43 12/04/19 23 12/04/2022 TYPE/ RH/SC REEN exp date 2022 23:59 Not Available [facility] (Lab) [address], [place], [address], 12/05/2022 19:32:43 12/04/19 23 12/04/2022 RPR SCREE N/REF IVONNE TITER /FTA RPR screen Nonrea ctive nonrea ctive Not Available [facility] (Lab) [address], [place], [address], 12/05/2022 19:32:44 01/02/20 23 01/01/2023 CULTU RE: URINE result report SEE RESULT S BELOW Test: Cultu re: Urine Speci men Sourc e: Urine Voide d Speci men Type: Urine Speci men Date: 2022 11:22 AM Resul t Date: 2022 10:21 AM Resul t Statu s: Final resul t Abnor mal: No Resul ting Lab: [facility] [address] [facility] [address] Tel: CULTU RE ----- ----- ----- --- Cultu re resul t (>=3 organ isms prese nt) indic ates possi ble conta minat ion. Repea t cultu re if sympt oms indic ate. Not Available [facility] (Lab) [address], [place], [address], 01/03/2023 11:26:50 11/05/19 23 11/05/2022 US, obste tric, follo w-up No observ ation record ed. [address], [place], [address], 11/06/2022 12:15:32 12/04/19 23 12/04/2022 US, obste tric, nucha l trans lucen cy No observ ation record ed. [email or web address] [facility] [address], [place], [address], 12/04/2022 18:15:17 12/04/19 23 12/04/2022 US, obste tric, nucha l trans lucen cy No observ ation record ed. JOSE F [facility] [address], [place], [address], 12/27/2022 05:19:10 01/30/20 23 01/29/2023 US, obste tric, 2nd or 3rd trime ster No observ ation record ed. [facility] [address], [place], [address], 01/29/2023 18:28:31 01/30/20 23 01/29/2023 US, obste tric, 2nd or 3rd trime ster No observ ation record ed. JOSE F [address], [place], [address], 02/28/2023 05:20:42 01/30/20 23 01/29/2023 US, obste tric, 2nd or 3rd trime ster No observ ation record ed. [email or web address] [address], [place], [address], 02/11/2023 16:41:14 02/04/20 23 02/03/2023 US, obste tric, follo w-up No observ ation record ed. [email or web address] [facility] [address], [place], [address], 02/04/2023 10:30:43 02/04/20 23 02/03/2023 US, obste tric, follo w-up No observ ation record ed. [email or web address] [facility] [address] [address], [place], [address], 02/05/2023 13:02:26 02/04/20 23 02/03/2023 US, obste tric, follo w-up No observ ation record ed. [address] [place] [address] [place] [address], [place], [address], 02/04/2023 10:30:43 02/04/20 23 02/03/2023 US, obste tric, follo w-up No observ ation record ed. [address] [facility] [place] [address], [place], [address], 02/04/2023 10:30:44 02/04/20 23 02/03/2023 US, obste tric, follo w-up No observ ation record ed. [address] [place] [address] [place] [address], [place], [address], 02/04/2023 10:30:44 03/04/20 23 03/04/2023 US, obste tric, follo w-up No observ ation record ed. [email or web address] [facility] [place] [address] [place] [address], [place], [address], 03/04/2023 15:17:56 03/04/20 23 03/04/2023 US, obste tric, follo w-up No observ ation record ed. [email or web address] [facility] [address] [address], [place], [address], 03/08/2023 16:33:25 04/01/20 23 04/01/2023 US, obste tric, follo w-up No observ ation record ed. [email or web address], [place], [address], 04/12/2023 08:45:46 04/29/20 23 04/29/2023 US, obste tric, follo w-up No observ ation record ed. [email or web address] [facility] [address], [place], [address], 04/30/2023 08:42:37 05/06/20 23 05/06/2023 US, obste tric, follo w-up No observ ation record ed. [email or web address] [facility] [address], [place], [address], 05/12/2023 18:32:26 06/08/20 23 06/07/2023 US, obste tric, follo w-up No observ ation record ed. [email or web address] [facility] [address], [place], [address], 06/08/2023 09:21:32 06/09/20 23 05/31/2023 US, obste tric, follo w-up No observ ation record ed. [email or web address] [facility] [address] [facility] [address], [place], [address], 08/09/2023 16:24:48 06/14/20 23 06/14/2023 US, obste tric, follo w-up No observ ation record ed. [email or web address] [facility] [address] [facility] [address], [place], [address], 08/09/2023 16:29:06 Result Notes None recorded. Problems Name Problem SNOMED Code Status Onset Date Resolution Date Notes Provider Name and Address Organization Details Recorded Time Pregnanc y 22206293 Completed 202206/25/2023 Anitra uribe, [facility] 16:52:38 Past pregnanc y history of section 082587353 Active x2, to repeat Anitra uribe, [facility] 3 16:52:35 Past pregnanc y history of gestatio nal diabetes mellitus 534533804 Active GDMA2 x2, A1C 5.5-- early GCT at 23w [facility] 16:52:35 Past pregnanc y history of intraute rine 83549587242 463607 Active 22w, nuchal cord, abruptio n Anitra uribe, [facility] 3 16:52:35 Past pregnanc y history of delivery of macrosom al infant 13252288157 102 Active 11#15oz, GDM dx late in preg Antira [facility], [facility] 3 16:52:35 Past pregnanc y history of section 995845633 Completed x2, to repeat Anitra [facility], [facility] 3 16:52:35 Past pregnanc y history of gestatio nal diabetes mellitus 701705152 Completed GDMA2 x2, A1C 5.5-- early GCT at 23w visit Anitra Hammond [facility] 3 16:52:35 Past pregnanc y history of intraute rine 62605851611 235359 Completed 22w, nuchal cord, abruptio n Anitra [facility], [facility] 3 16:52:35 Past pregnanc y history of delivery of macrosom al infant 86059974972 102 Completed 11#15oz, GDM dx late in preg Anitra Hammond [facility], [facility] 3 16:52:35 Steriliz ation requeste d [id number] Active SIGN FORM- with R CS Anitra uribe, [facility] 3 16:52:35 Steriliz ation requeste d [id number] Completed SIGN FORM- with R CS Britaney [facility], [facility] 3 16:52:35 pericard ial effusion 955519779 Completed 2022 to [facility] 02/03 @ 11:15 Anitra [facility], [facility] 3 16:52:35 pericard ial effusion 753599454 Active 2022 to [facility] 02/03 @ 11:15 Anitra Hammond [facility] 3 16:52:35 Placenta circumva llata 2102609 Completed serial growth - next with [facility] 02/03 Anitra Hammond [facility] 3 16:52:36 Problem Notes None recorded. Procedures Surgical History Date Name Laterality Status Provider Name and Address Organization Details Recorded Time 2 Date of Last Pap Smear completed [facility] 11/05/2022 11:12:23 delivery completed [facility] 11/05/2022 15:25:49 Imaging Results Imaging Date Name Status LastModified by Organization Details LastModified Time 11/05/2022 US, obstetric, follow-up completed [email or web address] [facility] [address], [place], [address], 11/06/2022 12:15:32 12/04/2022 US, obstetric, nuchal translucency completed [email or web address] [facility] [address], [place], [address], 12/04/2022 18:15:17 12/04/2022 US, obstetric, nuchal translucency active JOSE F [address], [place], [address], 12/27/2022 05:19:10 01/29/2023 US, obstetric, 2nd or 3rd trimester completed [email or web address] [facility] [address], [place], [address], 01/29/2023 18:28:31 01/29/2023 US, obstetric, 2nd or 3rd trimester active JOSE F [address], [place], [address], 02/28/2023 05:20:42 01/29/2023 US, obstetric, 2nd or 3rd trimester completed [email or web address] [facility] [address], [place], [address], 02/11/2023 16:41:14 02/03/2023 US, obstetric, follow-up completed [email or web address] [facility] [address], [place], [address], 02/04/2023 10:30:43 02/03/2023 US, obstetric, follow-up [place] [address] [facility] [address] [address], [place], [address], 02/05/2023 13:02:26 02/03/2023 US, obstetric, follow-up completed [email or web address] [place] [address] [facility] [address], [place], [address], 02/04/2023 10:30:43 02/03/2023 US, obstetric, follow-up completed [email or web address] [facility] [address], [place], [address], 02/04/2023 10:30:44 02/03/2023 US, obstetric, follow-up completed [email or web address] [place] [address] [facility] [address], [place], [address], 02/04/2023 10:30:44 03/04/2023 US, obstetric, follow-up completed [email or web address] [facility] [address], [place], [address], 03/04/2023 15:17:56 03/04/2023 US, obstetric, follow-up completed [email or web address] [facility] [address] [address], [place], [address], 03/08/2023 16:33:25 04/01/2023 US, obstetric, follow-up completed [email or web address] [facility] [address] [address], [place], [address], 04/12/2023 08:45:46 04/29/2023 US, obstetric, follow-up completed [email or web address] [facility] [address] [address], [place], [address], 04/30/2023 08:42:37 05/06/2023 US, obstetric, follow-up completed [email or web address] [address], [place], [address], 05/12/2023 18:32:26 06/07/2023 US, obstetric, follow-up completed [facility] [address] [address], [place], [address], 06/08/2023 09:21:32 05/31/2023 US, obstetric, follow-up completed [email or web address] [facility] [address] [address], [place], [address], 08/09/2023 16:24:48 06/14/2023 US, obstetric, follow-up completed [email or web address] [facility] [address], [address], 08/09/2023 16:29:06 Procedure Notes None recorded. Medical Equipment None Reported. Allergies No known drug allergies Medications Name Sig Start Date Stop Date Status Note LastModified by Organization Details LastModified Time cyclobenzap rine 10 mg tablet TAKE 1 TABLET BY MOUTH DAILY AT BEDTIME NEEDED FOR BACK SPASMS 11/05 completed Not Available Not Available Not Available ondansetron HCl 4 mg tablet TAKE 1 TABLET BY MOUTH EVERY 4 TO 6 HOURS NEEDED FOR NAUSEA OR VOMITING active Not Available Not Available No t Available aspirin 81 mg tablet,carmen yed release TAKE 2 TABLETS BY MOUTH ONCE DAILY active Not Available Not Available No t Available potassium chloride ER 20 mEq tablet,exte nded release(par t/cryst) TAKE 2 TABLETS BY MOUTH EVERY DAY FOR 2 DAYS FOR LOW POTASSIUM active Not Available Not Available No t Available famotidine 20 mg tablet TAKE 1 TABLET BY MOUTH TWICE DAILY 11/05 completed Not Available Not Available Not Available Ear Wax Removal Drops 6.5 % 11/05 completed Not Available Not Available Not Available oseltamivir 75 mg capsule TAKE 1 CAPSULE BY MOUTH TWICE DAILY 11/05 completed Not Available Not Available Not Available promethazin e 25 mg tablet TAKE 1 TABLET BY MOUTH EVERY 4-6 HOURS NEEDED FOR NAUSEA 11/05 completed Not Available Not Available Not Available docusate sodium 100 mg capsule TAKE ONE CAPSULE BY MOUTH TWICE DAILY active Not Available Not Available No t Available hydroxyzine HCl 25 mg tablet TAKE 1 TABLET BY MOUTH EVERY DAY AT BEDTIME 11/05 completed Not Available Not Available Not Available ibuprofen 600 mg tablet TAKE 1 TABLET BY MOUTH EVERY 6 HOURS NEEDED FOR PAIN 11/05 completed Not Available Not Available Not Available polyethylen e glycol 3350 17 gram/dose oral powder MIX AND DRINK 17 GRAMS BY MOUTH ONCE DAILY active Not Available Not Available No t Available fluticasone propionate 50 mcg/actuati on nasal spray,suspe nsion SHAKE LIQUID AND USE 1 SPRAY IN EACH NOSTRIL TWICE DAILY 11/05 completed Not Available Not Available Not Available amoxicillin 875 mg-potassiu m clavulanate 125 mg tablet TAKE 1 TABLET BY MOUTH TWICE DAILY 11/05 completed Not Available Not Available Not Available Levemir FlexPen 100 unit/mL (3 mL) solution subcutaneou s insulin pen active Not Available Not Available Not Available OneTouch Verio test strips USE TO TEST BLOOD SUGAR LEVELS FOUR TIMES DAILY active Not Available Not Available No t Available Xulane 150 mcg-35 mcg/24 hr transdermal patch APPLY 1 PATCH TO THE SKIN EVERY WEEK FOR 3 WEEKS THEN OFF FOR 1 WEEK 11/05 completed Not Available Not Available Not Available TRUEplus Pen Needle 31 gauge x 5/16 USE TWICE DAILY active Not Available Not Available No t Available OneTouch Delica Plus Lancet 33 gauge USE FOUR TIMES DAILY active Not Available Not Available No t Available Baqsimi 3 mg/actuatio n nasal spray SPRAY 1 SPRAY IN THE NOSE NEEDED active Not Available Not Available No t Available Se--19 29 mg iron-1 mg tablet TAKE 1 TABLET BY MOUTH EVERY DAY active Not Available Not Available No t Available ID NOW COVID-19 Test Kit DIRECTED 11/05 completed Not Available Not Available Not Available OneTouch Verio Reflect Meter USE TO TEST BLOOD SUGAR LEVELS FOUR TIMES DAILY active Not Available Not Available No t Available Vitals Date Recorded Body height Body mass index (BMI) Body weight Systolic blood pressure Diastolic blood pressure Provider Name and Address Organization Details Last Updated DateTime 12/04/2022 165.1 cm 35.1 kg/m2 85042.99 007 g 134 mm[Hg] 84 mm[Hg] [facility] 3 12:06:32 Date Recorded Body height Body mass index (BMI) Body weight Systolic blood pressure Diastolic blood pressure Provider Name and Address Organization Details Last Updated DateTime 01/01/2023 165.1 cm 35.1 kg/m2 60831.99 007 g 133 mm[Hg] 85 mm[Hg] [facility] 3 11:18:33 Date Recorded Body height Body mass index (BMI) Body weight Systolic blood pressure Diastolic blood pressure Provider Name and Address Organization Details Last Updated DateTime 01/29/2023 165.1 cm 35.5 kg/m2 98216.89 3284 g 138 mm[Hg] 84 mm[Hg] Mayda Moser [facility] 3 12:06:36 Social History Question Answer Notes LastModified by Organizat ion Details LastModified Time Tobacco Smoking Status Never Smoker Beatriz Prajapaticarmel [facility] 11/05/2022 08:53:19 What Is Your Level Of Alcohol Consumption? None Information not available 11/05/2022 Do You Use Any Illicit Or Recreational Drugs? No Information not available 11/05/2022 Has Tobacco Cessation Counseling Been Provided? No Information not available 11/05/2022 Do You Or Have You Ever Used Any Other Forms Of Tobacco Or Nicotine? No Information not available 11/05/2022 Sex: Unknown Functional Status None recorded. Mental Status None recorded. Family History Relationship Description Onset Age of this Age Resolved Age Notes LastModified by Organization Details LastModified Time Maternal Grandmother Diabetes mellitus [email or web address] Not available 02/16 12:46:02 Father Diabetes mellitus [email or web address] Not available 2022 11:14:17 Medical History Condition Response Allergies (Food, seasonal, environmental ) N Other N Breast Cancer N Drug/Latex Allergies/Reactions N Blood Transfusion N Dermatologic Disorders N Lung Disease N Defects or Inherited Disease N Breast Problem N Gestational Diabetes N Hematologic disorders N Anesthesia Complications N History of STI N Deep Vein Thrombosis N Polycystic ovary syndrome N Anxiety Disorder N Autoimmune disease N Arthritis N Infertility N Polyps N Acid Reflux (GERD) N History of abnormal pap N Cancer N Stroke N Varicosities N Neurologic/Epilepsy N Endometriosis N High Cholesterol N Headaches N Fibromyalgia N Kidney Disease N Heart Problems N Kidney or Bladder Problems N Thyroid Problems N GI Problems N Eating Disorder N Anemia N Art (IVF or FET) N Psychiatric Illness N Ovarian Cancer N Diabetes N Pulmonary (TB, Asthma) N Hepatitis/Liver Disease N No Past Medical History N Eczema N Urinary Tract Infection N Abuse/Domestic Violence N Asthma N Trauma/Violence N Depression/ depression N Heart Disease N Pre-Eclampsia N Hypertension N Osteoporosis N Thrombophilias N Gynecological History Statement/Question Response STIs/STDs N Age of first menstrual cycle 16 Date of Last Pap Smear 08/01/2022 Current Control Method Date of LMP 09/18/2022 Obstetrics History GPAL:G 3 P 2 1 0 2 Type Value Full Term 2 Premature 1 Living 2 Total 3 Past Encounters Encounter ID Performer Location Encounter Start Date Encounter Closed Date Diagnosis/Indication Diagnosis SNOMED-CT Code Diagnosis ICD10 Code Diagnosis Note [id number] Federica Praveen [facility] [address] [address] 11/05/2022 10:41:49 11/05/2022 11:11:29 [id number] Sweetie Ramirez [facility] [address] [address] 11/05/2022 10:42:38 11/05/2022 15:43:22 test positive 402467093 Z32.01 Risk factors addressed: Tobacco Cessation, Safe Sexual Practices, environmen kandi, work hazards, travel restrictio ns, seat belt use.Eat a health well balanced diet, avoid alcohol, tobacco, and street drugs.Enga ge in daily low impact exercise, avoid temperatur e extremes, and cat, rodent, and bird feces.Avoi d travel to areas where zika virus is a concern.Of fered cf/sma/nip t. Handouts given and discussed with patient.Ch ildbirth classes recommende d.New OB sheet given.If previous , counseling . Records request for previous pregnancie s and recent pap filled out.Pt verbalizes that she understand s the importance of above instructio ns.All questions were answered.P atient reminded to have annual well woman examinatio n and address [facility] . [id number] Marci Alfredo MD [facility] [address] [address] 12/04/2022 11:33:34 12/04/2022 14:28:10 Routine care 007201266 Z34.81 Past pregn sourav history of section 202554149 Z98.890 Past pregn sourav history of delivery of macrosomal 8566113437 9102 Z87.59 Past pregn sourav history of gestational diabetes mellitus 431884264 Z86.32 Past pregn sourav history of intrauterine 4459958125 4654617 Z87.59 [id number] Federica Morton [facility] [address] [address] 12/04/2022 11:34:40 12/04/2022 14:04:30 screening 953018528 Z36.82 [id number] Marci Alfredo MD [facility] [address] [address] 01/01/2023 11:00:15 01/12/2023 15:50:40 Routine care 638703340 Z34.81 Past pregn sourav history of section 678742926 Z98.890 Past pregn sourav history of delivery of macrosomal infant 6133664149 9102 Z87.59 Past pregn sourav history of gestational diabetes mellitus 554994128 Z86.32 Sterilizat ion requested 408105402 Z30.2 [id number] [facility] [address] [address] 01/29/2023 10:54:33 01/29/2023 12:20:13 screening for malformation 693878546 Z36.3 [id number] Marci Alfredo MD [facility] [address],[place] [address] 01/29/2023 10:54:54 02/01/2023 15:12:32 pericardial effusion 825626454 O36.8999 Past pregn sourav history of gestational diabetes mellitus 576439986 Z86.32 Health Concerns Section Related Observation LastModified by Organization Detai ls LastModified Time None Recorded Concern Status LastModified by Organization Details LastModified Time None Recorded Advance Directives Directive None Recorded Payers Encounter Date Sequence Insurance Name Policy Number Policy Shea Covered Member ID Shea Member ID Guarantor Name 12/04/2022 1 [facility] ON OR AFTER 04/17/21 (MEDICAID REPLACEMENT - HMO) [employer] [place] [id number] [employer] [place] 12/04/2022 1 [facility] ON OR AFTER 04/17/21 (MEDICAID REPLACEMENT - HMO) [employer] [place] [id number] [employer] [place] 01/01/2023 1 [facility] ON OR AFTER 04/17/21 (MEDICAID REPLACEMENT - HMO) [employer] [place] [id number] [employer] [place] 01/29/2023 1 [facility] ON OR AFTER 04/17/21 (MEDICAID REPLACEMENT - HMO) [employer] [place] [id number] Quynh Quinterorogers 01/29/2023 1 [facility] ON OR AFTER 21 (MEDICAID REPLACEMENT - HMO) Quynh Gallardo [id number] Quynh Quinterorogers OBGyn Episode Ob Episode Information Episode Created Date Number of Fetuses Patient Bloodtype Patient rh Status Prepregnancy Weight lbs Domestic Partner Domestic Partner Phone Father Name Carpenter Apprentice Status 11/05/19 23 1 CLOSED Fetus Data First Name Last Name Admitted to NICU Weight (g) Sex Living Outcome Pediatric Complications Fetus ID Race Codes Race Delivery Type 3118.44 5 M Full Term [id number] Repeat Carl Calculation Initial Carl Date Initial Exam [...] Complications Tubal Sterilization Discharge Date Comments 6 38 GDM Discharge Information Feeding Method Contraceptive Method Maternal HG B and HCT Levels Ob Episode Information Episode Created Date Number of Fetuses Patient Bloodtype Patient rh Status Prepregnancy Weight lbs Domestic Partner Domestic Partner Phone Father Name Carpenter Apprentice Status 12/04/19 23 1 O Positive 210 CLOSED Fetus Data First Name Last Name Admitted to NICU Weight (g) Sex Living Outcome Pediatric Complications Fetus ID Race Codes Race Delivery Type [id number] Problems Problem Notes [facility] referral sent 02/01 - 2 f etal pericardial effusions w/ history 22w loss with abruption -03/03 945a5/ - Pt transferred care to [place] Problem Name Start Date End Date Resolution Snomed Code Not e Sterilization requested [id number] SIGN FORM- with R CS pericardial effusion 01/31/2023 [id number] to [facility] 02/03 @ 11:15 Placenta circumvallata 9990142 serial growth - next with [facility] 02/03 Past history of section 518479232 x2, to repeat Past history of gestational diabetes mellitus 676824298 GDMA2 x2, A1C 5.5-- early GCT at 23w visit Past history of intrauterine [id number] 22w, nucha l cord, abruption Past history of delivery of macrosomal 48124812174455 11#15 oz, GDM dx late in preg Carl Calculation Initial Carl Date Initial Exam Date Initial Exam Provider Initial Ultrasound Date Last Menstrual Period Date Ultra Sound Weeks Gestation 06/25/2023 12/04/2022 11/05/2022 09/18/2022 6 Eighteen To Twenty Week Carl Update Ultra Sound Date Fundal Height At Umbil Quickening Date Ultra Sound Latest Weeks Gestation Final Carl Confirmed By Final Carl Confirmed Date Final Carl Date Ultra Sound Latest Days Gestation 0 [email or web address] 12/04/2022 06/25/20 23 0 Pre- Flowsheet Flowsheet Date 12/04/2022 Mon Score Blood Edema Fundus Height Fundus Units Glucose Ketones Leukocytes Nitrite Labor Signs Protein Cervic Dilation Cervic Effacement Cervic Station Type Weight in lbs Pre/Post Dialysis Refused BP Diastolic BP Location Tested BP Systolic BP Type Fetus Heart Rate Present Fetus Movement Comments Flowsheet Date 12/04/2022 Mon Score Blood Edema Fundus Height Fundus Units Glucose Ketones Leukocytes Nitrite Labor Signs Protein Cervic Dilation Cervic Effacement Cervic Station none Type Weight in lbs Pre/Post Dialysis Refused Weight 211.603334914750 BP Diastolic BP Location Tested BP Systolic BP Type 84 134 Fetus Heart Rate Present A 170 Fetus Movement A No Comments Quynh is a 27yo p resenting for care, previously saw Dr Mccullough. Has history of 22w IUFD that she says she was told she had both abruption and baby had nuchal cord. She has had two subsequent pregnancies with term CS, the first for CPD of a 11-15 baby. She had GDMA2 in both, the first it was diagnosed late. We are planning a repeat CS this . Labs with NIPT today, normal NT today. She is taking PNV and ASA. She was on what sounds like progesterone in her last two pregnancies, we discussed that I don't see an indication for this but I will review her records when we get them. A1C today. Will probably do an early GCT at 20w. Flowsheet Date 01/01/2023 Mon Score Blood Edema Fundus Height Fundus Units Glucose Ketones Leukocytes Nitrite Labor Signs Protein Cervic Dilation Cervic Effacement Cervic Station neg trace none trace Type Weight in lbs Pre/Post Dialysis Refused Weight 211.829476932092 BP Diastolic BP Location Tested BP Systolic BP Type 85 133 Fetus Heart Rate Present A 160 Fetus Movement A Yes Comments Doing fine. Does want tubal with CS, will sign form prior to scheduling CS. She is certain. Denies sx UTI. A1C was 5.5. Will do GCT at 23w visit, repeat later if passes. Anatomy US next visit. Flowsheet Date 01/29/2023 Mon Score Blood Edema Fundus Height Fundus Units Glucose Ketones Leukocytes Nitrite Labor Signs Protein Cervic Dilation Cervic Effacement Cervic Station Type Weight in lbs Pre/Post Dialysis Refused BP Diastolic BP Location Tested BP Systolic BP Type Fetus Heart Rate Present Fetus Movement Comments Flowsheet Date 01/29/2023 Mon Score Blood Edema Fundus Height Fundus Units Glucose Ketones Leukocytes Nitrite Labor Signs Protein Cervic Dilation Cervic Effacement Cervic Station neg none none trace Type Weight in lbs Pre/Post Dialysis Refused Weight 213.020675238732 BP Diastolic BP Location Tested BP Systolic BP Type 84 L arm 138 sitting Fetus Heart Rate Present A 150 Fetus Movement A Yes Comments Feeling well. U/s today laquita rio complete and wnl except 3.7mm pericardial effusion. no ascites or hydrops. Discussed findings, will get MFM appointment in next 1-2 weeks. Also has circumvallate placenta. Early GCT next visit, repeat 28-29w if passes. Menstrual History Last Menstrual Date Menses Monthly On Bcp Conception Prior Menses Frequency Hcg Plus Date Menarche Onset Age 1209/18/2022 Genetic Screening And Infection History Question Response Note Mental Retardation/Autism false Patient's Age Will Be 35 Yea rs Or Older At Estimated Date of Delivery false Thalassemia (Kazakh, Yoruba, Mediterranean, Or Background): MCV < 80 false Neural Tube Defect (Meningom yelocele, Spina Bifida, Or Anencephaly) false Congenital Heart Defect false Down Syndrome false Kristopher-Sachs (eg, Pentecostalism, Cajun, Luxembourgish-Bulgarian) f alse Marina Disease false Sickle Cell Disease Or Trait () false Hemophilia Or Other Blood Disorders false Muscular Dystrophy false Cystic Fibrosis false [place]'s Chorea false Intellectual Disability/Autism false If Yes, Was Person Tested For Fragile X? false Other Inherited Genetic Or Chromosomal Disorder false Maternal Metabolic Disorder (eg, Type 1 Diabetes , PKU) false Patient Or Baby's Father Had A Child With Defects Not Listed Above false Recurrent Loss, Or A Stillbirth true 22w, abruption Medications (including Suppl ements, Vitamins, Herbs, OTC Drugs), Illicit/Recreational Drugs, Alcohol false If Yes, Agent(s) And Strength/Dosage false Any Other Genetic History false Live With Someone With TB Or Exposed To TB false Patient Or Partner Has History Of Genital Herpes false Rash Or Viral Illness Since Last Menstrual Perio d false History Of STD, Gonorrhea, Chlamydia, HPV, Syphi lis false Other Infection History false History of HIV false History of Hepatitis false Prior GBS-infected child false Hemoglobinopathy Or Carrier false Other Structural Defect false Recent Travel History Outside of Country false Delivery Information Delivery Date Delivery Type Labor Anesthesia Weeks Gestation Incision Type Labor Labor Length Hrs Delivered By Post Complications Tubal Sterilization Discharge Date Comments Discharge Information Feeding Method Contraceptive Method Maternal HG B and HCT Levels Ob Episode Information Episode Created Date Number of Fetuses Patient Bloodtype Patient rh Status Prepregnancy Weight lbs Domestic Partner Domestic Partner Phone Father Name Carpenter Apprentice Status 12/04/19 23 1 CLOSED Fetus Data First Name Last Name Admitted to NICU Weight (g) Sex Living Outcome Pediatric Complications Fetus ID Race Codes Race Delivery Type Prematur e [id number] Vaginal Delivery Carl Calculation Initial Carl Date Initial Exam [...] Complications Tubal Sterilization Discharge Date Comments 3 22 iufd, nuchal cord, abruption Discharge Information Feeding Method Contraceptive Method Maternal HG B and HCT Levels Ob Episode Information Episode Created Date Number of Fetuses Patient Bloodtype Patient rh Status Prepregnancy Weight lbs Domestic Partner Domestic Partner Phone Father Name Carpenter Apprentice Status 11/05/19 23 1 CLOSED Fetus Data First Name Last Name Admitted to NICU Weight (g) Sex Living Outcome Pediatric Complications Fetus ID Race Codes Race Delivery Type 04325.7 [id number] F Full Term [id number] Primary Carl Calculation Initial Carl Date Initial [...] Complications Tubal Sterilization Discharge Date Comments 4 38 GDM Discharge Information Feeding Method Contraceptive Method Maternal HG B and HCT Levels
[2024-11-26 08:08] VITALS: BP 155/95; PULSE 96; RESP 14; TEMP 37.2; O2SAT 100
--- NOTE | 2024-11-26 08:24 | ED_ITS ---
HPI - General Adult General Chief complaint: Arrhythmia/Palpitations Stated complaint: heart racing Time Seen by Provider: 11/26/24 08:04 History of Present Illness HPI narrative: 29-year-old female presenting to the emergency department for evaluation of rapid heart rate that lasted approximately 10 minutes. 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 Patient states she also did have some anxiety associated with this. She is unsure which came 1st. Patient states symptoms lasted approximately 10-15 minutes and then resolved. Patient was encouraged to present to the emergency department. Upon arrival to the emergency department patient denies any pain or complaints. Patient does admit to increased drinking over the course of last week. Related Data Allergies Allergy/AdvReac Type Severity Reaction Status Date / Time No Known Allergies Allergy Mild Verified 11/26/24 08:02 Review of Systems 2 Review of Systems: All systems reviewed & are unremarkable except as noted in HPI and below Exam 2 Narrative: APPEARANCE: Well appearing, no pain, no distress, well-nourished. HEAD: normocephalic, atraumatic. EYES: PERRLA/EOMI, conjunctivae clear. NOSE: Normal no drainage EARS:TMS clear with good light reflex. THROAT: Pharynx clear, no exudate. NECK: Supple. No adenopathy, no masses. RESPIRATORY: Airway patent, respirations nonlabored. Clear to auscultation bilaterally, no rales, rhonchi, wheezing. CARDIOVASCULAR: Regular rate and rhythm without murmurs rubs or gallops. ABDOMINAL: Soft, nontender, nondistended, normal bowel sounds MUSCULOSKELETAL: Moves all extremities. Strength/ROM intact, No edema, No calf tenderness. NEURO: Alert. Cranial nerves II through XII intact. Good gait. Good coordination SKIN: Warm, dry. Normal Color Course Vital Signs Vital signs: Vital Signs Temperature 98.9 F 11/26/24 08:08 Pulse Rate 96 11/26/24 08:08 Respiratory Rate 14 11/26/24 08:08 Blood Pressure 155/95 H 11/26/24 08:08 Pulse Oximetry 100 11/26/24 08:08 Oxygen Delivery Room Air 11/26/24 08:08 Temperature 97.9 F 11/26/24 10:25 Pulse Rate 88 11/26/24 10:25 Respiratory Rate 16 11/26/24 10:25 Blood Pressure 150/88 H 11/26/24 10:25 Pulse Oximetry 100 11/26/24 10:25 Oxygen Delivery Room Air 11/26/24 08:08 Medical Decision Making MDM Narrative Medical decision making narrative: 29-year-old female present to the emergency department for evaluation for rapid heart rate. Patient states thereafter hard on lasted a few minutes and has since resolved. Patient denies any associated shortness of breath. Patient is currently afebrile with no leukocytosis and hemoglobin of 12.6. INR 0.9. No significant abnormalities on the patient's CMP. Patient did test positive for COVID. EKG showed normal sinus rhythm. Patient also does admit to increased drinking over the course of the last week. Patient was advised to take Tylenol and ibuprofen for fever and for body aches to drink plenty of fluids to avoid alcohol. Patient was updated the results of her workup. All questions concerns were addressed. Differential Diagnosis Differential Diagnosis: COVID, RSV, influenza a, tachycardia, heart palpitations Vital Signs Vital Signs: Vital Signs Temperature 98.9 F 11/26/24 08:08 Pulse Rate 96 11/26/24 08:08 Respiratory Rate 14 11/26/24 08:08 Blood Pressure 155/95 H 11/26/24 08:08 Pulse Oximetry 100 11/26/24 08:08 Oxygen Delivery Room Air 11/26/24 08:08 Temperature 97.9 F 11/26/24 10:25 Pulse Rate 88 11/26/24 10:25 Respiratory Rate 16 11/26/24 10:25 Blood Pressure 150/88 H 11/26/24 10:25 Pulse Oximetry 100 11/26/24 10:25 Oxygen Delivery Room Air 11/26/24 08:08 Lab Data Lab results reviewed: Yes I reviewed the patient's lab results. 11/26/24 08:46 11/26/24 08:46 Labs: Lab Results 11/26/24 11/26/24 Range/Units 08:28 08:46 WBC 4.0 L (4.5-10.0) K/mm3 RBC 3.85 L (4.2-5.4) M/mm3 Hgb 12.6 (12.0-15.0) g/dL Hct 37.0 (37.0-47.0) % MCV 96.1 (80-100) fl MCH 32.7 (26-34) pg MCHC 34.1 (32-36) g/dl RDW 11.6 (11.5-14.5) % Plt Count 252 (150-375) k/mm3 MPV 10.3 (7.4-10.4) fl Immature Gran % (Auto) 0.8 H (0-0.5) % Neut % (Auto) 48.2 (45.5-73.1) % Lymph % (Auto) 41.0 (18.3-44.2) % Liberty % (Auto) 8.4 (2.6-8.5) % Eos % (Auto) 1.3 (0-4.4) % Baso % (Auto) 0.3 (0.2-1.2) % Lymph # (Auto) 1.62 (0.9-3.2) K/mm3 Liberty # (Auto) 0.3 (0.1-0.6) K/mm3 Eos # (Auto) 0.1 (0-0.3) K/mm3 Baso # (Auto) 0.0 (0.0-0.1) K/mm3 Abs Immat Gran (auto) 0.03 (0.00-0.031) K/mm3 Absolute Neuts (auto) 1.9 (1.3-6.7) K/mm3 Absolute Nucleated RBC 0.000 (0.0-0.012) K/mm3 Nucleated RBC % 0.0 (0.0-0.2) % PT 12.9 (11.1-14.7) Seconds INR 0.9 APTT 24.4 (22.3-36.8) Seconds Sodium 143 (137-145) mmol/L Potassium 3.5 (3.4-5.0) mmol/L Chloride 107 (98-107) mmol/L Carbon Dioxide 25 (22-30) mmol/L Anion Gap 11 (4-12) mmol/L BUN 13 (7-17) mg/dL Creatinine 0.58 L (0.7-1.0) mg/dL Estim Creat Clear Calc 130 ml/min Estimated GFR > 60 (59 - ) Glucose 112 H (65-110) mg/dL Calcium 9.3 (8.4-10.2) mg/dL Magnesium 1.9 (1.6-2.3) mg/dL Total Bilirubin 0.8 (0.2-1.3) mg/dL AST 17 (14-36) U/L ALT 14 (6-35) U/L Alkaline Phosphatase 95 (38-126) U/L Total Protein 8.0 (6.3-8.2) g/dL Albumin 4.3 (3.5-5.1) g/dL TSH (Reflex) 0.929 (0.465-4.68) uIU/mL Influenza A (RT-PCR) Negative (Negative) Influenza B (RT-PCR) Negative (Negative) RSV (RT-PCR) Negative (Negative) SARS-CoV-2 RNA (RT-PCR) Positive A (Negative) Discharge Plan Discharge Clinical Impression: Palpitations, COVID Patient Disposition: Home, Self-Care Condition: Stable Instructions: Antibiotic Form, Heart Palpitations (DC), COVID-19 (Coronavirus Disease 2019) (ED) Additional Instructions: Tylenol and ibuprofen for fever for body aches. Drink plenty of fluids. Avoid alcohol and caffeine which may cause you to be dehydrated or increase your heart rate. Have close follow-up with your primary care physician. If you have any worsening symptoms then please call or return to the emergency department. Patient Language: Maori Follow-up/Referrals: UNKNOWN,DOCTOR [Primary Care Provider] - Stand Alone Forms: Work/School Release IP
[2024-11-26 08:53] LABS: Basophils Percent Auto 0.3 % (0.2-1.2); Eosinophils Absolute Auto 0.1 K/mm3 (0-0.3); Eosinophils Percent Auto 1.3 % (0-4.4); Hemoglobin 12.6 g/dL (12.0-15.0); Immature Granulocyte Absolute 0.03 K/mm3 (0.00-0.031); Immature Granulocyte Percent A 0.8 % (0-0.5); Lymphocytes Absolute Auto 1.62 K/mm3 (0.9-3.2); Mean Corpuscular HGB Conc 34.1 g/dl (32-36); Mean Corpuscular Hemoglobin 32.7 pg (26-34); Mean Corpuscular Volume 96.1 fl (80-100); Mean Platelet Volume 10.3 fl (7.4-10.4); Monocytes Absolute Auto 0.3 K/mm3 (0.1-0.6); Monocytes Percent Auto 8.4 % (2.6-8.5); Neutrophils Absolute Auto 1.9 K/mm3 (1.3-6.7); Neutrophils Percent Auto 48.2 % (45.5-73.1); Platelet Count Result 252 k/mm3 (150-375); Red Blood Count 3.85 M/mm3 (4.2-5.4); Red Cell Distribution Width 11.6 % (11.5-14.5)
--- OUTSIDE RECORDS SUMMARY | 2024-11-26 08:56 | XMS_ITS | CONTINUITY OF CARE DOCUMENT ---
Author Name bailey avalos Address Unknown Organization [facility] Address [address] [place] [address] Phone [phone] Care Team Providers Care Senior Case Manager Name Role Phone Kameron Vera MD Unavailable JOSH LIN MD Unavailable INSURANCE PROVIDERS Payer name Policy type / Coverage type Carlo red alliance party ID [place] MEDICAID (2) Medicaid [id number]
--- OUTSIDE RECORDS SUMMARY | 2024-11-26 08:57 | XMS_ITS | Clinical Summary ---
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 This disclosure is being madepursuant to the Care Everywhere program and may not contain all information available regarding this patient. Last updated 18.[employer] [facility] Allergies No known active allergies Medications * Be aware that medications may not be up to date on this document. Alwaysverify current medications with the patient. Medication Sig Dispensed Refills Start Date End Date Status docusate sodium (Colace) 100 MG capsule Take 1 (one) capsule by mouth 2 times daily 100 capsule 03/04/2023 Active Additional Information Patient not taking.Reported on 07/06/2023 plus iron (Natatab) 29-1 MG tabletIndications: Supervision of high-risk of young primigravida (HCC) Take 1 (one) tablet by mouth once daily 30 tablet 11 03/29/2023 Active Additional Information Patient not taking.Reported on 07/06/2023 polyethylene glycol 3350 (Miralax) 17 GM/SCOOP powder MIX AND DRINK 17 GRAMS BY MOUTH ONCE DAILY 238 g 04/26/2023 Active Additional Information Patient not taking.Reported on 07/06/2023 acetaminophen (Tylenol) 500 MG tablet Take 1 (one) tablet by mouth every 6 hours as needed for Pain Maximum allowable Acetaminophen amount = 4 Grams (4000 mg) / 24 hours. 60 tablet 06/17/2023 Active ibuprofen (Motrin) 600 MG tablet Take 1 (one) tablet by mouth every 6 hours as needed for Pain 60 tablet 06/17/2023 Active oxyCODONE, immediate release, (Roxicodone) 5 MG tabletIndications: Previous section complicating (HCC),Status post repeat low transverse section Take 1 (one) tablet by mouth every 4 hours as needed for Pain 12 tablet 06/17/2023 Active Additional Information Patient not taking.Reported on 07/06/2023 Active Problems Patient Care Coordination No te Formatting of this note migh t be different from the original. [employer] form completed. Diapers given. 04/01/2023, 04/26/23, 05/20/23, [place] [place] Problem Noted Date Diagnosed Date Status post repeat low transverse secti on 06/04/2023 Insulin controlled gestation al diabetes mellitus (GDM) in third trimester 06/04/2023 pericardial effusion affecting management of mother 04/29/2023 Supervision of high-risk 02/03/2023 Hx CS x2 02/03/2023 Hx GDM in 2 prior pregnancies 02/03/2023 Hx macrosomic infant 02/03/2023 Hx IUFD 02/03/2023 Class II obesity 02/03/2023 Resolved Problems Problem Noted Date Diagnosed Date Resolved Date GDM (gestational diabetes mellitus) 07/14/2016 02/03/2023 Overview (07/14/2016): GCT: 203 HgbA1C: 5.5 Vitamin D deficiency 07/14/2016 023 Overview (07/14/2016): Vit d level: 11.2 H/O: 07/14/2016 02/03/2023 Overview (07/14/2016): G2: LGA - 11lb 15oz Prior with demise 07/14/2016 02/03/2023 Overview (07/14/2016): G1 at 25 weeks Thyroid function test abnormal 07/14/2016 02/03/2023 Overview (07/14/2016): TSH: 0.202 Supervision of high-risk pre gnancy of young multigravida 07/14/2016 02/03/2023 Overview (07/14/2016): PNL: O+/I/-/- Ab: Negative GCT: 203 HIV: NR GBS: Datinwk US; unknown LMP H/H/Plt: 11.2/33.7/193 Hgb Elec: Negative UDS: QS: Negative CF: Negative Pap: LGSIL; HRHPV Gc/Chl: UCx: Negative Breast/Bottle: Family Planning: Low grade squamous intraepit helial lesion (LGSIL) on Papanicolaou smear of cervix 07/14/2016 02/03/2023 Cervical high risk HPV (berta n papillomavirus) test positive 07/14/2016 02/03/2023 Depression screen 07/14/2016 02/03/2023 Overview (07/14/2016): EPDS score: Supervision of other high-risk 10/13/2013 07/14/2016 Overview (08/25/2015): Dating by documented 8wk US in [facility]: O+/I/-/-, HIV NR Antibody: Neg Hgb/Hct/Plt: GC/CT: Neg/Neg Pap: Neg 04/11/13 Genetics: Quad Scrn neg CF: neg Pap normal Anatomy: GCT: 176 GTT: 123, 222, 216, 138 GBS: Breast/bottle: Contraception: LGA (large for gestational age) fetus 10/13/2013 07/14/2016 Overview (11/15/2013): 2490g on 09/27/13 4460g on 11/02/13 GDM (gestational diabetes mellitus) 10/13/2013 07/14/2016 Overview (10/13/2013): GTT: 123/222/216/138 Post depression 10/13/201302/03 Overview (07/14/2016): After G1- stillborn at 25 weeks Immunizations Name Administration Dates Next Due MMR 06/16/2023(Deferred: See Comment s - immune) TDAP (7yrs+) 04/01/2023(Deferred: Patient Ref used) Family History Medical History Relation Name Comments Diabetes Maternal Grandmother Hypertension Maternal Grandmother Hypertension Mother Diabetes Other Relation Name Status Comments Maternal Grandmother Mother Other Social History Tobacco Use Types Packs/Day Years Used Date Smoking Tobacco: Never Tobacco Cessation:Counseling Given: Not Answered Alcohol Use Standard Drinks/Week Comments No 0 (1 standard drink = 0.6 oz pur e alcohol) Overall Financial Resource Strain (CARDIA) Answe r Date Recorded How hard is it for you to pa y for the very basics like food, housing, medical care, and heating? Not hard at all 06/15/2023 [facility] - Occupational Stress Questionnaire Answer Date Recorded Do you feel stress - tense, restless, nervous, or anxious, or unable to sleep at night because your mind is troubled all the time - these days? Not at all 06/15/2023 Hunger Vital Sign Answer Date Recorded Within the past 12 months, y ou worried that your food would run out before you got the money to buy more. Never true 06/15/20 23 Within the past 12 months, t he food you bought just didn't last and you didn't have money to get more. Never true 06/15/2023 PRAPARE - Transportation Answer Date Re corded In the past 12 months, has l ack of transportation kept you from medical appointments or from getting medications? No 05/19 In the past 12 months, has l ack of transportation kept you from meetings, work, or from getting things needed for daily living? No 06/15/2023 Housing Stability Vital Sign Answer Arya e Recorded In the last 12 months, was t here a time when you were not able to pay the mortgage or rent on time? No 06/15/2023 In the last 12 months, how many places have you lived? 1 06/15/2023 In the last 12 months, was t here a time when you did not have a steady place to sleep or slept in a assisted (including now)? No 06/15/2023 [place] Depression Scale Answer Date Recorded [place] Depression Scale Total 0 07/06/2023 The thought of harming myself has occurred to me . Never 07/06/2023 Sex and Gender Information Value Date Recorded Sex Assigned at Not on file Gender Identity Not on file Sexual Orientation Not on file Last Filed Vital Signs Vital Sign Reading Time Taken Comments Blood Pressure 129/86 07/06/2023 11:18 AM CDT Pulse 83 07/06/2023 11:18 AM CDT Temperature 36.9 C (98.4 F) 06/18/2023 8:30 AM CDT Respiratory Rate 16 07/06/2023 11:1 8 AM CDT Oxygen Saturation 100% 06/18/2023 8:3 0 AM CDT Inhaled Oxygen Concentration - - Weight 91.8 kg (202 lb 6.4 oz) 07/06/20 11:18 AM CDT Height 160 cm (5' 3 ) 06/16/2023 11:14 AM CDT from 04/26/23 Body Mass Index 35.85 06/16/2023 11:14 AM CDT Plan of Treatment Health Maintenance Due Date Last Done Comments HEPATITIS C SCREENING 01/04/2013 DTAP/TDAP/TD VACCINES (1 - Tdap) 2014 HEPATITIS B VACCINE (1 of 3 - 19+ 3-dose series) 2014 COVID-19 VACCINE (2023-2 5 season) 2024 06/12/2021, 05/14/2021 INFLUENZA VACCINE (#1) 2024 09/16/2022 DEPRESSION SCREENING 10/18/2024 PAP SMEAR 12/04/2025 12/04/2022 ZOSTER VACCINE (1 of 2) 2045 HIV SCREENING Completed 04/01/2023 HIB VACCINE Aged Out No longer eligi ble based on patient's age to complete this topic HPV VACCINE Aged Out No longer eligi ble based on patient's age to complete this topic MENINGOCOCCAL (Group B) VACCINE Aged Out No longer eligible b ased on patient's age to complete this topic MENINGOCOCCAL VACCINE Aged Out No wallace todd eligible based on patient's age to complete this topic PNEUMOCOCCAL VACCINE Aged Out No long er eligible based on patient's age to complete this topic Procedures Procedure Name Priority Date/Time Associated Diagnosis Comments HIV-1 HIV-2 ANTIBODY + HIV P24 AG PANEL Routine 04/01/2023 12:39 PM CDT Supervision of high-risk from Last 3 Months or Most Recently Relevant to Health Maintenance Results * HIV-1 HIV-2 ANTIBODY + HIV P24 AG PANEL (04/01/2023 12:39 PM CDT) HIV1/2 Ab + P24 Ag Non Reactive Non Reactive 04/01/2023 1:34 PM CDT [facility] Blood BLOOD SPECIMEN / Unknown Venipuncture / Unknown 04/01/2023 12:39 PM CDT 04/01/2023 12:54 PM CDT Narrative [facility] - 04/01/2023 1:34 PM CDT No Laboratory evidence of HIV infection. Coretta Duran MD LAB - CHEMISTRY [facility] Organization Address City/State/[facility] Co de Phone Number [facility] [address], [place] [id number] from Last 3 Months or Most Recently Relevant to Health Maintenance Advance Directives * Full Code (Latest Code Status on File) Date Activated Date Inactivated Comments 06/15/2023 9:07 AM 06/18/2023 1:07 PM * FULL RESUSCITATION Date Activated Date Inactivated Comments 11/02/2013 7:40 PM 11/06/2013 12:21 PM
--- OUTSIDE RECORDS SUMMARY | 2024-11-26 08:57 | XMS_ITS | Referral Summary ---
Author Organization [facility] Address [address] [place] [address] Care Team Providers Care Shoe Polisher Name Role Phone Unavailable Primary Care Provider Unavailabl e Source Comments [facility],non-owned Affiliates and Associated Physician Practices is amultiple site organization consisting of ambulatory clinics and hospital sitesin [place], [place], [place] and [place]. This disclosure is being madepursuant to the Care Everywhere program and may not contain all information available regarding this patient. Last updated 18.[facility] Allergies No known active allergies Medications * [...] migh t be different from the original. [employer] form completed. Diapers given. 04/01/2023, 04/26/23, 05/20/23, 07/06/23[place] [place] Problem Noted Date Diagnosed Date Status [...] immune) TDAP (7yrs+) 04/01/2023(Deferred: Patient Ref used) Social History Tobacco Use Types Packs/Day Years [...] and heating? Not hard at all 06/15/2023 [facility] - Occupational Stress Questionnaire Answer Date Recorded [...] place to sleep or slept in a [facility] (including now)? No 06/15/2023 [place] Depression Scale Answer Date Recorded [place] Depression Scale Total 0 07/06/2023 The thought [...] Mass Index 35.85 06/16/2023 11:14 AM CDT Functional Status Functional Status Response Date of Assess ment Is person deaf or have serious hearing difficult y? No 06/15/2023 Is person blind or have serious difficulty seein g? No 06/15/2023 Does person have serious dif ficulty walking/climbing stairs? No 06/15/2023 Does person have difficulty dressing/bathing? No 06/15/2023 Does person have difficulty doing errands alone? No 06/15/2023 Cognitive Status Response Date of Assessm ent Does person have difficulty concentrating/remembering/making decisions? No 06/15/2023 Plan of Treatment Not on file Procedures Procedure Name Priority Date/Time Associated Diagnosis Comments HIV-1 HIV-2 ANTIBODY + HIV P24 AG PANEL Routine 04/01/2023 12:39 PM CDT Supervision of high-risk from Last 3 Months or Most Recently Relevant to Health Maintenance Results * HIV-1 HIV-2 ANTIBODY + HIV P24 AG PANEL (04/01/2023 12:39 PM CDT) HIV1/2 Ab + P24 Ag Non Reactive Non Reactive 04/01/2023 1:34 PM CDT [facility] Blood BLOOD SPECIMEN / Unknown Venipuncture / Unknown 04/01/2023 12:39 PM CDT 04/01/2023 12:54 PM CDT Narrative [facility] - 04/01/2023 1:34 PM CDT No Laboratory evidence of HIV infection. Coretta Duran MD LAB - CHEMISTRY [facility] [address] [place] [address] from Last 3 Months or Most Recently Relevant to Health Maintenance Advance Directives * Full Code (Latest Code Status on File) Date Activated Date Inactivated Comments 06/15/2023 9:07 AM 06/18/2023 1:07 PM * FULL RESUSCITATION Date Activated Date Inactivated Comments 11/02/2013 7:40 PM 11/06/2013 12:21 PM
--- OUTSIDE RECORDS SUMMARY | 2024-11-26 08:57 | XMS_ITS | Patient Health Summary ---
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 This disclosure is being madepursuant to the Care Everywhere program and may not contain all information available regarding this patient. Last updated 18.[facility] [employer] Allergies No known active allergies Medications * Be aware that medications may not be up to date on this document. Alwaysverify current medications with the patient. * docusate sodium (Colace) 100 MG capsule(Started 03/04/2023) Take 1 (one) capsule by mouth 2 times daily * plus iron (Natatab) 29-1 MG tablet(Started 03/29/2023) Take 1 (one) tablet by mouth once daily 11 refills by 03/28/2024 * polyethylene glycol 3350 (Miralax) 17 GM/SCOOP powder(Started 04/26/2023) MIX AND DRINK 17 GRAMS BY MOUTH ONCE DAILY * acetaminophen (Tylenol) 500 MG tablet(Started 06/17/2023) Take 1 (one) tablet by mouth every 6 hours as needed for Pain Maximum allowable Acetaminophen amount = 4 Grams (4000 mg) / 24 hours. * ibuprofen (Motrin) 600 MG tablet(Started 06/17/2023) Take 1 (one) tablet by mouth every 6 hours as needed for Pain * oxyCODONE, immediate release, (Roxicodone) 5 MG tablet(Started 06/17/2023) Take 1 (one) tablet by mouth every 4 hours as needed for Pain Active Problems Problem Noted Date Diagnosed Date Status post repeat low transverse secti on 06/04/2023 Insulin controlled gestation al diabetes mellitus (GDM) in third trimester 06/04/2023 pericardial effusion affecting management of mother 04/29/2023 Supervision of high-risk 02/03/2023 Hx CS x2 02/03/2023 Hx GDM in 2 prior pregnancies 02/03/2023 Hx macrosomic 02/03/2023 Hx IUFD 02/03/2023 Class II obesity 02/03/2023 Resolved Problems Problem Noted Date Diagnosed Date Resolved Date GDM (gestational diabetes mellitus) 07/14/2016 02/03/2023 Vitamin D deficiency 07/14/2016 023 H/O: 07/14/2016 02/03/2023 Prior with demise 07/14/2016 02/03/2023 Thyroid function test abnormal 07/14/2016 02/03/2023 Supervision of high-risk pre gnancy of young multigravida 07/14/2016 02/03/2023 Low grade squamous intraepit helial lesion (LGSIL) on Papanicolaou smear of cervix 07/14/2016 02/03/2023 Cervical high risk HPV (berta n papillomavirus) test positive 07/14/2016 02/03/2023 Depression screen 07/14/2016 02/03/2023 Supervision of other high-risk 10/13/2013 07/14/2016 LGA (large for gestational age) fetus 10/13/2013 07/14/2016 GDM (gestational diabetes mellitus) 10/13/2013 07/14/2016 Post depression 10/13/201302/03 Social History Tobacco Use Types Packs/Day Years [...] and heating? Not hard at all 06/15/2023 [facility] [employer] - Occupational Stress [...] in a assisted (including now)? No 06/15/2023 Startex Depression Scale Answer Date Recorded Startex Depression Scale Total 0 07/06/2023 The thought [...] Mass Index 35.85 06/16/2023 11:14 AM CDT Procedures * GLUCOSE - POINT OF CARE(Performed 06/16/2023) * CBC W/O DIFFERENTIAL(Performed 06/16/2023) * BLOOD GASES CORD SNEHA (ISTAT)(Performed 06/15/2023) * BLOOD GASES CORD ART (ISTAT)(Performed 06/15/2023) * NEURAXIAL BLOCK(Performed 06/15/2023) * SECTION (REPEAT)(Performed 06/15/2023) Performed for History of section * TYPE + SCREEN PANEL(Performed 06/15/2023) * SYPHILIS ANTIBODY CASCADING REFLEX(Performed 06/15/2023) Performed for Previous section complicating ([facility]) * CBC W AUTO DIFFERENTIAL(Performed 06/15/2023) Performed for Previous section complicating ([facility]) * GLUCOSE - POINT OF CARE(Performed 06/15/2023) * BIOPHYSICAL PROFILE W NST(Performed 06/14/2023) Performed for pericardial effusion affecting management of mother ([facility]), Hx IUFD , Hx macrosomic infant, Insulin controlled gestational diabetes mellitus (GDM) in third trimester ([facility]), Historyof 3 sections * BIOPHYSICAL PROFILE W NST(Performed 06/07/2023) Performed for pericardial effusion affecting management of mother ([facility]), Hx IUFD , Hx macrosomic infant, Insulin controlled gestational diabetes mellitus (GDM) in third trimester ([facility]), Historyof 3 sections * URINALYSIS - POCT (IP) BEAKER INTERFACE(Performed 06/07/2023) * HEMOGLOBIN A1C(Performed 06/07/2023) Performed for Insulin controlled gestational diabetes mellitus (GDM) in third trimester ([facility]), Supervision of high-risk * CULTURE STREP B(Performed 06/07/2023) Performed for Insulin controlled gestational diabetes mellitus (GDM) in third trimester ([facility]), Supervision of high-risk * GLUCOSE - POINT OF CARE(Performed 06/07/2023) * BIOPHYSICAL PROFILE W NST(Performed 05/31/2023) Performed for pericardial effusion affecting management of mother ([facility]), Hx IUFD , Hx macrosomic infant, Insulin controlled gestational diabetes mellitus (GDM) in third trimester ([facility]), Historyof 3 sections * URINALYSIS - POCT (IP) BEAKER INTERFACE(Performed 05/20/2023) * BIOPHYSICAL PROFILE W NST(Performed 05/20/2023) Performed for pericardial effusion affecting management of mother ([facility]CC), Hx IUFD , Hx macrosomic , Insulin controlled gestational diabetes mellitus (GDM) in third trimester ([facility]CC), Historyof 3 sections * URINALYSIS - POCT (IP) BEAKER INTERFACE(Performed 05/13/2023) * BIOPHYSICAL PROFILE W NST(Performed 05/13/2023) Performed for pericardial effusion affecting management of mother (HCC), Hx IUFD , Hx macrosomic infant, Insulin controlled gestational diabetes mellitus (GDM) in third trimester (HCC), Historyof 3 sections * BIOPHYSICAL PROFILE W NST(Performed 05/06/2023) Performed for pericardial effusion affecting management of mother (HCC), Hx IUFD , Hx macrosomic infant, Insulin controlled gestational diabetes mellitus (GDM) in third trimester (HCC), Historyof 3 sections * BIOPHYSICAL PROFILE W NST(Performed 04/29/2023) Performed for pericardial effusion affecting management of mother (HCC), Hx IUFD , Hx macrosomic infant, Insulin controlled gestational diabetes mellitus (GDM) in third trimester (HCC), Historyof 3 sections * URINALYSIS - POCT (IP) BEAKER INTERFACE(Performed 04/26/2023) * GLUCOSE - POINT OF CARE(Performed 04/26/2023) * URINALYSIS - POCT (IP) BEAKER INTERFACE(Performed 04/12/2023) * ECHO COMPLETE(Performed 04/06/2023) Performed for Pericardial effusion (HCC) * SLIDE SCAN HEMATOLOGY(Performed 04/01/2023) Performed for Supervision of high-risk * SYPHILIS ANTIBODY CASCADING REFLEX(Performed 04/01/2023) Performed for Supervision of high-risk * HIV-1 HIV-2 ANTIBODY + HIV P24 AG PANEL(Performed 04/01/2023) Performed for Supervision of high-risk * CBC W/O DIFFERENTIAL(Performed 04/01/2023) Performed for Supervision of high-risk * URINALYSIS - POCT (IP) BEAKER INTERFACE(Performed 04/01/2023) * SONOGRAM - COMPLETE(Performed 04/01/2023) * URINALYSIS - POCT (IP) BEAKER INTERFACE(Performed 03/11/2023) * GLUCOSE - POINT OF CARE(Performed 03/11/2023) * SONOGRAM - COMPLETE(Performed 03/04/2023) Performed for Encounter for follow-up ultrasound of anatomy ([facility]) * URINALYSIS - POCT (IP) BEAKER INTERFACE(Performed 03/04/2023) * URINALYSIS - POCT (IP) BEAKER INTERFACE(Performed 02/22/2023) * GLUCOSE - POINT OF CARE(Performed 02/22/2023) * GTT 3 HR (100G) GESTATIONAL DIAGNOSTIC(Performed 02/09/2023) Performed for Supervision of high-risk of young primigravida ([facility]) * GLUCOSE - POINT OF CARE(Performed 02/09/2023) * PROTEIN CREATININE RATIO URINE RANDOM PNL(Performed 02/03/2023) Performed for Diet controlled gestational diabetes mellitus (GDM) in second trimester ([facility]) * LUPUS ANTICOAGULANT PANEL(Performed 02/03/2023) Performed for Diet controlled gestational diabetes mellitus (GDM) in second trimester ([facility]) * CARDIOLIPIN ANTIBODY IGG/IGM PANEL(Performed 02/03/2023) Performed for Diet controlled gestational diabetes mellitus (GDM) in second trimester ([facility]) * BETA-2 GLYCOPROTEIN 1 ANTIBODY IGG/IGM PANEL(Performed 02/03/2023) Performed for Diet controlled gestational diabetes mellitus (GDM) in second trimester ([facility]) * COMPREHENSIVE METABOLIC PANEL(Performed 02/03/2023) Performed for Diet controlled gestational diabetes mellitus (GDM) in second trimester ([facility]) * GLUCOSE CHALLENGE(Performed 02/03/2023) Performed for Diet controlled gestational diabetes mellitus (GDM) in second trimester ([facility]) * SONOGRAM - COMPLETE(Performed 02/03/2023) Performed for History of placental abruption, pericardial effusion affecting management of mother ([facility]), History of miscarriage, History of gestational diabetes mellitus (GDM) * BIOPHYSICAL PROFILE W NST(Performed 09/09/2016) Performed for Diet controlled gestational diabetes mellitus (GDM) in third trimester ([facility]), Supervision of high-risk of young multigravida ([facility]) * BIOPHYSICAL PROFILE W NST(Performed 09/02/2016) Performed for Diet controlled gestational diabetes mellitus (GDM) in third trimester ([facility]), Supervision of high-risk of young multigravida (HCC) * BIOPHYSICAL PROFILE W NST(Performed 08/26/2016) Performed for Gestational diabetes mellitus (GDM) in third trimester, gestational diabetes method of control unspecified (HCC), Supervision of high- risk of young multigravida (HCC) * BIOPHYSICAL PROFILE W NST(Performed 08/19/2016) Performed for Gestational diabetes mellitus (GDM) in third trimester, gestational diabetes method of control unspecified (HCC), Supervision of high- risk of young multigravida (HCC) * BIOPHYSICAL PROFILE W NST(Performed 08/12/2016) Performed for Gestational diabetes mellitus (GDM) in third trimester, gestational diabetes method of control unspecified (HCC), Supervision of high- risk of young multigravida (HCC) * BIOPHYSICAL PROFILE W NST(Performed 08/05/2016) Performed for Gestational diabetes mellitus (GDM) in third trimester, gestational diabetes method of control unspecified (HCC), Supervision of high- risk of young multigravida (HCC) * BIOPHYSICAL PROFILE W NST(Performed 07/29/2016) Performed for Gestational diabetes mellitus (GDM) in third trimester, gestational diabetes method of control unspecified (HCC), Supervision of high- risk of young multigravida (HCC) * SONOGRAM - COMPLETE(Performed 07/15/2016) * GLUCOSE PROTEIN KETONE URINE - POINT OF CAR(Performed 07/15/2016) * IMAGING/RADIOLOGY/XRAY RESULTS ORDER(Performed 12/16/2014) * GLUCOSE - POINT OF CARE(Performed 11/06/2013) * GLUCOSE - POINT OF CARE(Performed 11/06/2013) * GLUCOSE - POINT OF CARE(Performed 11/06/2013) * LAB HISTORICAL RESULTS-ONBASE(Performed 11/06/2013) * LAB HISTORICAL RESULTS-ONBASE(Performed 11/06/2013) * GLUCOSE - POINT OF CARE(Performed 11/05/2013) * GLUCOSE - POINT OF CARE(Performed 11/05/2013) * GLUCOSE - POINT OF CARE(Performed 11/05/2013) * GLUCOSE - POINT OF CARE(Performed 11/05/2013) * TYPE + SCREEN PANEL(Performed 11/05/2013) * CBC W AUTO DIFFERENTIAL(Performed 11/05/2013) * GLUCOSE - POINT OF CARE(Performed 11/04/2013) * GLUCOSE - POINT OF CARE(Performed 11/04/2013) * GLUCOSE - POINT OF CARE(Performed 11/04/2013) * GLUCOSE - POINT OF CARE(Performed 11/04/2013) * CREATININE CLEARANCE URINE TIMED + BLOOD(Performed 11/03/2013) Performed for Elevated blood pressure (not hypertension), Supervision of other high-risk ([facility]), LGA (large for gestational age) fetus, GDM (gestational diabetes mellitus) ([facility]), Post partumdepression * PROTEIN URINE TIMED QUANTITATIVE(Performed 11/03/2013) Performed for Elevated blood pressure (not hypertension), Supervision of other high-risk ([facility]), LGA (large for gestational age) fetus, GDM (gestational diabetes mellitus) ([facility]), Post partumdepression * PROTEIN CREATININE RATIO URINE TIMED PNL(Performed 11/03/2013) Performed for Elevated blood pressure (not hypertension), Supervision of other high-risk ([facility]), LGA (large for gestational age) fetus, GDM (gestational diabetes mellitus) ([facility]), Post partumdepression * GLUCOSE - POINT OF CARE(Performed 11/03/2013) * GLUCOSE - POINT OF CARE(Performed 11/03/2013) * GLUCOSE - POINT OF CARE(Performed 11/03/2013) * GLUCOSE - POINT OF CARE(Performed 11/03/2013) * GLUCOSE - POINT OF CARE(Performed 11/03/2013) * GLUCOSE - POINT OF CARE(Performed 11/03/2013) * GLUCOSE - POINT OF CARE(Performed 11/03/2013) * GLUCOSE - POINT OF CARE(Performed 11/02/2013) * BLOOD TYPE VERIFICATION(Performed 11/02/2013) * URINALYSIS REFLEX MICROSCOPIC REFLEX CULTURE(Performed 11/02/2013) Performed for Elevated blood pressure (not hypertension) * PROTEIN CREATININE RATIO URINE RANDOM PNL(Performed 11/02/2013) Performed for Elevated blood pressure (not hypertension) * URINE MICROSCOPIC ONLY REFLEX TO CULTURE(Performed 11/02/2013) Performed for Elevated blood pressure (not hypertension) * TYPE + SCREEN PANEL(Performed 11/02/2013) Performed for Elevated blood pressure (not hypertension) * URIC ACID BLOOD(Performed 11/02/2013) Performed for Elevated blood pressure (not hypertension) * LDH BLOOD(Performed 11/02/2013) Performed for Elevated blood pressure (not hypertension) * COMPREHENSIVE METABOLIC PANEL(Performed 11/02/2013) Performed for Elevated blood pressure (not hypertension) * CBC W AUTO DIFFERENTIAL(Performed 11/02/2013) Performed for Elevated blood pressure (not hypertension) * GLUCOSE - POINT OF CARE(Performed 11/02/2013) * GLUCOSE PROTEIN KETONE URINE - POINT OF CAR(Performed 11/02/2013) * BIOPHYSICAL PROFILE W NST(Performed 11/02/2013) Performed for Supervision of other high-risk ([facility]), GDM (gestational diabetes mellitus) ([facility]), LGA (large for gestational age) fetus * GLUCOSE PROTEIN KETONE URINE - POINT OF CAR(Performed 11/02/2013) * FIBRONECTIN(Performed 10/04/2013) * FIBRONECTIN(Performed 09/20/2013) * FIBRONECTIN(Performed 09/06/2013) * FIBRONECTIN(Performed 08/23/2013) * FIBRONECTIN(Performed 08/09/2013) Results * GLUCOSE - POINT OF CARE (06/16/2023 6:15 AM CDT) Only the most recent of32 resultswithin the time period is included. Pathologist [facility] Glucose WB/POC 97 70 - 106 mg/dL 06/16/2023 6:22 AM CDT [facility] Specimen Type Cap Fingerstick 2022 6:22 AM CDT [facility] Blood BLOOD SPECIMEN / Unknown 06/16/2023 6:15 AM CDT 06/16/2023 6:21 AM CDT Tomi Ruiz MD LAB - POINT OF CARE ORDERABLES Performing Organization Address City/State/[facility] Co de Phone Number [facility] [address] [place] [address] * (ABNORMAL) CBC W/O DIFFERENTIAL (06/16/2023 2:36 AM CDT) Only the most recent of2 resultswithin the time period is included. WBC 6.5 4.4 - 10.7 x10E9/L 06/16/2023 3:19 AM CDT [facility] RBC 3.20(L) 3.80 - 5.20 x10E12/L 06/16/2023 3:19 AM CDT [facility] Hemoglobin 10.9(L) 12.0 - 15.6 gm/dL 06/16/2023 3:19 AM CDT [facility] Hematocrit 31.9(L) 35.9 - 45.5 % 06/16/2023 3:19 AM CDT [facility] MCV 99.7(H) 80.7 - 98.3 fl 06/16/2023 3:19 AM CDT [facility] MCH 34.1(H) 26.7 - 34.0 pg 06/16/2023 3:19 AM CDT [facility] MCHC 34.2 30.8 - 35.9 gm/dL 06/16/2023 3:19 AM CDT [facility] Platelet Count 125(L) 153 - 416 x10E9/L 06/16/2023 3:19 AM CDT [facility] RDW-CV 12.8 12.1 - 14.9 % 06/16/2023 3:19 AM CDT [facility] MPV 11.6 9.4 - 12.9 fl 06/16/2023 3:19 AM CDT [facility] Blood BLOOD SPECIMEN / Unknown Lab Venipuncture / Unknown 06/16/2023 2:36 AM CDT 06/16/2023 3:08 AM CDT Tomi Ruiz MD LAB - HEMATOLOGY ORD ERABLES [facility] [address] [place] [address] * (ABNORMAL) BLOOD GASES CORD SNEHA (ISTAT) (06/15/2023 12:14 PM CDT) pH Cord Venous POCT 7.31 7.28 - 7.40 pH 06/15/2023 12:16 PM CDT [facility] pCO2 Cord Venous POCT 41.0 35 - 45 mm hg 06/15/2023 12:16 PM CDT [facility] pO2 Cord Venous POCT 26 22 - 33 mm hg 06/15/2023 12:16 PM CDT [facility] HCO3 Cord Arterial POCT 20.5(L) 22 - 24 mmol/L 06/15/2023 12:16 PM CDT [facility] BE Cord Venous POCT Calc -5 -6.4 - 1.6 mmol/L 06/15/2023 12:16 PM CDT [facility] TCO2 Cord Venous POCT 22 22 - 30 mmol/L 06/15/2023 12:16 PM CDT [facility] O2 Saturation % Cord Venous Calc POCT 41 % 06/15/2023 12:16 PM CDT [facility] Site CORD SNEHA 06/15/2023 12:16 PM CDT [facility] Sample iSTAT CORD SNEHA 06/15/2023 12:16 PM CDT [facility] Blood CORD BLOOD SPECIMEN / Unknown 06/15/2023 12:14 PM CDT 06/15/2023 12:16 PM CDT Tomi Ruiz MD LAB - POINT OF CARE ORDERABLES [facility] [address] [place] [address] * (ABNORMAL) BLOOD GASES CORD ART (ISTAT) (06/15/2023 12:09 PM CDT) pH Cord Arterial POCT 7.31 7.20 - 7.34 pH 06/15/2023 12:16 PM CDT [facility] pCO2 Cord Arterial POCT 40.0(L) 45 - 55 mm hg 06/15/2023 12:16 PM CDT [facility] pO2 Cord Arterial POCT 28(H) 12 - 25 mm hg 06/15/2023 12:16 PM CDT [facility] HCO3 Cord Arterial POCT 20.0(L) 22 - 24 mmol/L 06/15/2023 12:16 PM CDT [facility] BE Cord Arterial POCT -6(L) -2.9 - 8.3 mmol/L 06/15/2023 12:16 PM CDT [facility] TCO2 Cord Arterial POCT 21 mmol/L 06/15/2023 12:16 PM CDT [facility] O2 Saturation Cord Art % Calc POCT 47 % 06/15/2023 12:16 PM CDT [facility] Site CORD ART 06/15/2023 12:16 PM CDT [facility] Sample iSTAT CORD ART 06/15/2023 12:16 PM CDT [facility] Blood CORD BLOOD SPECIMEN / Unknown 06/15/2023 12:09 PM CDT 06/15/2023 12:16 PM CDT Tomi Ruiz MD LAB - POINT OF CARE ORDERABLES [facility] [address] [place] [address] * Neuraxial Block (06/15/2023 11:52 AM CDT) Narrative Demi Choi APRN-CLINICAL APPEALS RN - 06/15/2023 11:52 AM CDT Demi Choi APRN-CLINICAL APPEALS RN 06/15/2023 11:54 AM Neuraxial Block Note Pre-Procedure: Procedure Name: Neuraxial Block Patient Location: OB Indications: at patient's request and surgical anesthesia Pre-Anesthetic Checklist: Patient identified, IV Checked, Risks and benefits discussed, Surgical consent verified, Monitors and equipment, Site examined, Pre-op evaluation done, Time-out performed, Informed consent obtained, Questions answered/anesthesia questions answered and Allergies reviewed Anticoagulation/ Anti-thrombosis status confirmed? Yes Supplemental O2: nasal cannula Monitors: BP, End tidal CO2, EKG and continuous pluse ox Patient Condition: awake Patient Sedated? No Procedure: Block Type: Spinal Prep: Betadine Sterile Field: mask, cap/hat, sterile established and sterile gloves Approach: midline Skin was localized? Yes Skin localized with: lidocaine (XYLOCAINE) 1 % injection - Infiltration 5 mL - 06/15/2023 11:12:00 AM Spinal Block: Needle Type: spinal needle Needle Gauge: 24 Needle Length: 102 mm Placement Site: L3-4 Number of Attempts: 3 CSF: free flow, aspiration before injection, aspiration during injection, aspiration after injection Local anesthetics used? Yes Spinal local anesthetics/Additives: bupivacaine 0.75 % in dextrose (SENSORCAINE) injection - Intraspinal 13.5 mg - 06/15/2023 11:30:00 AM dexmedeTOMIDine (Precedex) 200 mcg/2 ml injection - Intraspinal 5 mcg - 06/15/2023 11:30:00 AM Degree of difficulty: none Procedure Tolerance: tolerated moderately Sensory Level: T4 Motor Blockade: Yes Position post procedure: left lateral decubitus Vital Signs: Vital signs monitored and stable throughout. See anesthesia record for details. Start Time: 06/15/2023 11:07 AM End Time: 06/15/2023 11:30 AM Total Time: 23 Staff: Anesthesia Provider: Demi Choi APRN-CLINICAL APPEALS RN - performed the procedure Provider #1: Amy Casey APRN-LIANA Provider #2: - performed the procedure Mane Jiang DO GENERAL ANESTHESIA O RDERABLES * SYPHILIS ANTIBODY CASCADING REFLEX (06/15/2023 9:21 AM CDT) Only the most recent of2 resultswithin the time period is included. Treponema pallidum Antibody Non Reactive Non Reactive 06/15/2023 11:23 AM CDT [facility] Comment: No Laboratory evidence of syphilis infection. Note: Circulating antibodies may be low or undetectable in early infection. If recent exposure is suspected, re-draw sample in 2-4 weeks and repeat testing. Blood BLOOD SPECIMEN / Unknown Venipuncture / Unknown 06/15/2023 9:21 AM CDT 06/15/2023 9:31 AM CDT Tomi Ruiz MD LAB - SEROLOGY ORDER HAWK Performing Organization Address City/[facility] Co de Phone Number [facility] [address] [place] [address] * TYPE + SCREEN PANEL (All [facility] except [facility]) (06/15/2023 9:21 AM CDT) Only the most recent of3 resultswithin the time period is included. ABO Rh O POS 06/15/2023 10:13 AM CDT [facility] Comment:History checked. Antibody Screen NEG 10:13 AM CDT [facility] Blood Bank BLOOD SPECIMEN / Unknown Venipuncture / Unknown 06/15/2023 9:21 AM CDT 06/15/2023 9:31 AM CDT Tomi Ruiz MD LAB - BLOOD BANK ORD ERABLES Performing Organization Address City/[facility]/ZIP Co de Phone Number [facility] [address] [phone] * (ABNORMAL) CBC W AUTO DIFFERENTIAL (06/15/2023 9:21 AM CDT) Only the most recent of3 resultswithin the time period is included. WBC 4.2(L) 4.4 - 10.7 x10E9/L 06/15/2023 9:37 AM CDT [facility] WBC Corrected 06/15/2023 9:37 AM CDT [facility] RBC 3.62(L) 3.80 - 5.20 x10E12/L 06/15/2023 9:37 AM CDT [facility] Hemoglobin 12.7 12.0 - 15.6 gm/dL 06/15/2023 9:37 AM CDT [facility] Hematocrit 36.3 35.9 - 45.5 % 06/15/2023 9:37 AM CDT [facility] MCV 100.3(H) 80.7 - 98.3 fl 06/15/2023 9:37 AM CDT [facility] MCH 35.1(H) 26.7 - 34.0 pg 06/15/2023 9:37 AM CDT [facility] MCHC 35.0 30.8 - 35.9 gm/dL 06/15/2023 9:37 AM CDT [facility] Platelet Count 138(L) 153 - 416 x10E9/L 06/15/2023 9:37 AM CDT [facility] RDW-CV 12.7 12.1 - 14.9 % 06/15/2023 9:37 AM CDT [facility] MPV 11.9 9.4 - 12.9 fl 06/15/2023 9:37 AM CDT [facility] Neutrophils % 63.7 44.0 - 73.0 % 06/15/2023 9:37 AM CDT [facility] Lymphocytes % 22.9 20.0 - 43.0 % 06/15/2023 9:37 AM CDT [facility] Monocytes % 11.3 5.0 - 13.0 % 06/15/2023 9:37 AM CDT [facility] Eosinophils % 1.2 0.0 - 6.0 % 06/15/2023 9:37 AM CDT [facility] Basophils % 0.2 0.0 - 2.0 % 06/15/2023 9:37 AM CDT [facility] Immature Granulocytes 0.7 0 - 1 % 06/15/2023 9:37 AM CDT [facility] Neutrophil Absolute 2.69 2.01 - 7.14 x10E9/L 06/15/2023 9:37 AM CDT [facility] Lymphocytes Absolute 0.97(L) 1.07 - 3.94 x10E9/L 06/15/2023 9:37 AM CDT [facility] Monocytes Absolute 0.48 0.26 - 1.07 x10E9/L 06/15/2023 9:37 AM CDT [facility] Eosinophils Absolute 0.05 0 - 0.47 x10E9/L 06/15/2023 9:37 AM CDT [facility] Basophils Absolute 0.01 0 - 0.08 x10E9/L 06/15/2023 9:37 AM CDT [facility] Immature Granulocytes Absolute 0.03 0.00 - 0.06 x10E9/L 06/15/2023 9:37 AM CDT [facility] nRBC Auto 0 /100 WBC 06/15/2023 9:37 AM CDT [facility] Blood BLOOD SPECIMEN / Unknown Venipuncture / Unknown 06/15/2023 9:21 AM CDT 06/15/2023 9:31 AM CDT Tomi Ruiz MD LAB - HEMATOLOGY ORD ERABLES Performing Organization Address City/State/[facility] Co de Phone Number [facility] [address] [place] [address] * BIOPHYSICAL PROFILE W NST (06/14/2023 11:05 AM CDT) Only the most recent of15 resultswithin the time period is included. Anatomical Region Laterality Modality Other 06/14/2023 11:0 5 AM CDT Narrative 06/14/2023 12:16 PM CDT [facility] PHONE: FAX: Pat. Name: VENUS GALLARDO. No: [id number] Study Date: 06/14/2023 11:05am , Age: 03 1995, 28 Pregnancies: 4, Para 2112 Height: 65 in Weight: 213 lb LMP: 09/18/2022 GA by LMP: 38w3d GA by Base: 38w3d SYDNEY: 06/25/2023 GA Selected: 38w3d (From [facility]) SYDNEY: 06/25/2023 Referring MD: Marci Alfredo MD Outside Residential Sales Professional: Felipa Panchal CPT4: 05391,85744 BMI: 35.44 Hist/Ind: GDM, insulin G1: 22 week stillbirth Class II obesity Prior x 3 Normal echo Completed anatomic survey, LR cf-DNA Heart Rate: 142 bpm Amniotic Fluid Index: 09.2cm (07.3-23.4) Q1: 2.8cm Q2: 1.5cm Q3: 1.8cm Q4: 3.1cm Biophysical Profile: 07/27 Breathin Tone: 2 NST: 2 Movement: 2 AFV: 2 EVAL, PLACENTA Presentation: cephalic Placenta: posterior Heart Rate: 142 bpm Amniotic Fluid Volume: normal CLINICAL SUMMARY A single fetus is seen in cephalic presentation. The amniotic fluid volume is within normal limits. The FHR baseline is 140 bpm during today's reactive NST. The FHR variability was moderate and no significant decelerations were detected. IMPRESSION: Single, live, intrauterine at 38w3d Amniotic fluid volume: within normal limits Biophysical profile: Reassuring RECOMMEND: Close maternal monitoring of movement while awaiting delivery tomorrow (06/15/23) Thank you for allowing us the opportunity to care for your patient. Umang Leija MD <Electronic Signature> 06/14/2023 12:16pm Jonah Freeman MD [facility] ORDERABLES * (ABNORMAL) URINALYSIS - POCT (IP) BEAKER INTERFACE (06/07/2023 10:45 AM CDT) Only the most recent of9 resultswithin the time period is included. Color UA POCT Dark Yellow Straw, Yellow, Dark Yellow, Light Yellow 06/07/2023 10:47 AM CDT [facility] Clarity UA POCT Clear Clear 10:47 AM CDT [facility] Specific [place] UA POCT 1.025 1.005 - 1.030 06/07/2023 10:47 AM CDT [facility] pH UA POCT 6.5 5.0 - 8.0 pH 06/07/2023 10:47 AM CDT [facility] Protein UA POCT Negative Negative 10:47 AM CDT [facility] Blood UA POCT Negative Negative 06/07/2023 10:47 AM CDT [facility] Leukocyte UA POCT Negative Negative 06/07/2023 10:47 AM CDT [facility] Nitrite UA POCT Negative Negative 10:47 AM CDT [facility] Glucose UA POCT Negative Negative 10:47 AM CDT [facility] Ketone UA POCT 4+(A) Negative 06/07/2023 10:47 AM CDT [facility] Bilirubin UA POCT 1+(A) Negative 06/07/2023 10:47 AM CDT [facility] Urobilinogen UA POCT 1.0 0.1 - 1.0 EU/dL 06/07/2023 10:47 AM CDT [facility] Urine URINE / Unknown 06/07/2023 1 0:45 AM CDT 06/07/2023 10:47 AM CDT Jennifer Ag KIER OPERATOR-INSTALLATION AND SERVICE TECHNICIAN LAB - POINT OF C ARE ORDERABLES [facility] [address] [place] [address] * HEMOGLOBIN A1C (06/07/2023 10:43 AM CDT) Hemoglobin A1c 5.3 <5.7 % 06/07/2023 11:12 AM CDT [facility] Estimated Average Glucose 105 mg/dL 06/07/2023 11:12 AM CDT [facility] Blood BLOOD SPECIMEN / Unknown Venipuncture / Unknown 06/07/2023 10:43 AM CDT 06/07/2023 10:58 AM CDT Narrative [facility] - 06/07/2023 11:12 AM CDT HbA1c Interpretation: Normal: < 5.7% Pre-diabetes: 5.7-6.4% Diabetes: Equal to or greater than 6.5% Test results diagnostic of diabetes should be repeated for confirmation. Treatment target values recommended by ADA and other clinical organizations should be used to evaluate metabolic control in patients. This test should not replace glucose testing for patients with Type 1 diabetes, pediatric patients, or women. Falsely low HbA1c results may be observed in patients with clinical conditions that shorten erythrocyte life span or decrease mean erythrocyte age such as the presence of unstable hemoglobin variants, elevated hemoglobin F level or other causes of hemolytic anemia. HbA1c may not accurately reflect glycemic control when clinical conditions that affect erythrocyte survival are present. Severe Iron deficiency anemia may yield falsely high results. Hemoglobin A1c assay should not be used to diagnose or monitor diabetes in patients with malignancy, recent blood transfusion, chronic kidney or liver disease. This method may yield falsely low results when hemoglobin (HbF) exceeds 5% in the specimen. The [employer] assay for the measurement of HbA1c is a National Glycohemoglobin Standardization Program (NGSP) certified method. Leticia Lewis APRN-INSTALLATION AND SERVICE TECHNICIAN LAB - CHEMIS TRY ORDERABLES Performing Organization Address City/[facility]/ZIP Co de Phone Number [facility] [address] [place] [address] * CULTURE STREP B (06/07/2023 10:43 AM CDT) Culture Strep B Negative for beta-hemolytic Streptococcus Group B FREIDA 06/10/2023 2:34 PM CDT [facility] Microbiology MISCELLANEOUS SAMPLES / Unknown Collection / Unknown 06/07/2023 10:43 AM CDT 06/07/2023 10:59 AM CDT Leticia Lewis APRN-INSTALLATION AND SERVICE TECHNICIAN LAB - MICROB IOLOGY ORDERABLES Performing Organization Address City/[facility]/ZIP Co de Phone Number [facility] [address] [phone] * ECHO COMPLETE (04/06/2023 1:23 PM CDT) MV E PEAK VELOCITY 33.34 cm/s [facility] CV FUJI PACS MV E PEAK VELOCITY 33.34 cm/s [facility] CV FUJI PACS MV A pk troy 63.39 cm/s [facility] CV F UJI PACS MV A pk troy 63.39 cm/s [facility] CV F UJI PACS PV pk troy 75.01 cm/s [facility] CV FUJ I PACS PV pk troy 81.19 cm/s [facility] CV FUJ I PACS PV pk troy 81.19 cm/s [facility] CV FUJ I PACS Anatomical Region Laterality Modality Ultrasound 04/06/2023 12:4 4 PM CDT Narrative 04/06/2023 3:51 PM CDT Name: Venus Gallardo Patient Exam Info Gender: Female Patient Status: O/P : 1995 Admit Date: 04/06/2023 Exam Date/Time: 04/06/2023 12:44 PM Site: [facility] Staff Ordering Provider: Alycia Diana MD Outside Residential Sales Professional: Ba Rubio RDCS - FE Study Info Procedure: ECHO COMPLETE Indications: I31.39 - Pericardial effusion Maternal Gestational Status GA by EDC: 28 wks , 4 days EDC: 06/25/2023 Type: Field Age: 28 yrs Lie: Breech Summary * Trivial pericardial effusion, likely physiologic. * Otherwise, the echocardiogram was within normal limits. * Small atrial and ventricular septal defects and persistent ductus arteriosus cannot be excluded as findings. Anatomic Relationships Left sided cardiac apex (levocardia). There is normal visceral-cardiac situs, and normal segmental cardiac anatomical relationship. Systemic Veins There is normal systemic venous return. Pulmonary Veins The visualized pulmonary veins drain normally to the left atrium. Right Atrium The right atrial size is normal. Left Atrium The left atrial size is normal. Atrial Septum Patent foramen ovale with open foramen flap. Color flow is right to left. Right Ventricle The right ventricular cavity size is normal. The right ventricular wall thickness is normal. The right ventricular systolic function is normal. RV Outflow Tract The right ventricular outflow tract is normal. Left Ventricle The left ventricular cavity size is normal. The left ventricular wall thickness is normal. The left ventricular systolic function is normal. Ventricular Septum There is no ventricular septal defect with no shunting. LV Outflow Tract The left ventricular outflow tract is normal. Tricuspid Valve The tricuspid valve is structurally normal. The tricuspid inflow pattern is normal. Tricuspid velocity is within the normal range. There is no tricuspid regurgitation. Mitral Valve The mitral valve is structurally normal. The mitral inflow pattern is normal. Mitral velocity is within the normal range. There is no mitral regurgitation. Aorta aortic arch visualized and is without obstruction by 2D, color flow and Doppler. Pulmonary Arteries The main pulmonary artery is normal, with confluent branch pulmonary arteries. Ductus Arteriosus The antegrade flow velocity and pattern in the ductal arch is normal. A normal ductus arteriosus is appreciated. Doppler Flow in the ductus venosus is normal. The umbilical vein flow pattern is normal. The umbilical artery flow pattern is normal. Hydrops Assessment Very small pericardial effusion. No ascites present. No pleural effusion(s). Rhythm The rhythm is normal. There is 1:1 AV conduction. Pulmonary Valve The pulmonic valve exhibits normal leaflet mobility. The transpulmonic velocity is within normal range. There is no pulmonic regurgitation. Aortic Valve The aortic valve exhibits normal leaflet mobility. The transaortic velocity is within normal range. There is no aortic regurgitation. Doppler Measurements (Fetus A) Atrioventricular Valves Name Value Normal Z-Score Percentile Atrioventricular Valves Doppler TV E Peak Velocity 0.2 m/s TV A Peak Velocity 0.4 m/s MV E Peak Velocity 0.3 m/s MV A Peak Velocity 0.6 m/s (Fetus A) Semilunar Valves Name Value Normal Z-Score Percentile Semilunar Valves Doppler PV Peak Velocity 0.8 m/s AV Peak Velocity () 1.2 m/s (Fetus A) Heart Rate Name Value Normal Z-Score Percentile Heart Rate HR 143 bpm Report Signatures Finalized by Alycia Diana MD on 04/06/2023 03:51 PM Procedure Note Alycia Diana MD - 04/06/2023 Name: Venus Gallardo Patient Exam Info Gender: Female Patient Status: O/P : 1995 Admit Date: 04/06/2023 Exam Date/Time: 04/06/2023 12:44 PM Site: [facility] Staff Ordering Provider: Alycia Diana MD Outside Residential Sales Professional: Ba Rubio [facility] - FE Study Info Procedure: ECHO COMPLETE Indications: I31.39 - Pericardial effusion Maternal Gestational Status GA by EDC: 28 wks , 4 days EDC: 06/25/2023 Type: Field Age: 28 yrs Lie: Breech Summary * Trivial pericardial effusion, likely physiologic. * Otherwise, the echocardiogram was within normal limits. * Small atrial and ventricular septal defects and persistent ductus arteriosus cannot be excluded as findings. Anatomic Relationships Left sided cardiac apex (levocardia). There is normal visceral-cardiac situs, and normal segmental cardiac anatomical relationship. Systemic Veins There is normal systemic venous return. Pulmonary Veins The visualized pulmonary veins drain normally to the left atrium. Right Atrium The right atrial size is normal. Left Atrium The left atrial size is normal. Atrial Septum Patent foramen ovale with open foramen flap. Color flow is right toleft. Right Ventricle The right ventricular cavity size is normal. The right ventricularwall thickness is normal. The right ventricular systolic function is normal. RV Outflow Tract The right ventricular outflow tract is normal. Left Ventricle The left ventricular cavity size is normal. The left ventricular wall thickness is normal. The left ventricular systolic function is normal. Ventricular Septum There is no ventricular septal defect with no shunting. LV Outflow Tract The left ventricular outflow tract is normal. Tricuspid Valve The tricuspid valve is structurally normal. The tricuspid inflow patternis normal. Tricuspid velocity is within the normal range. There is notricuspid regurgitation. Mitral Valve The mitral valve is structurally normal. The mitral inflow pattern is normal. Mitral velocity is within the normal range. There is no mitral regurgitation. Aorta aortic arch visualized and is without obstruction by 2D, colorflow and Doppler. Pulmonary Arteries The main pulmonary artery is normal, with confluent branch pulmonary arteries. Ductus Arteriosus The antegrade flow velocity and pattern in the ductal arch is normal.A normal ductus arteriosus is appreciated. Doppler Flow in the ductus venosus is normal. The umbilical vein flow patternis normal. The umbilical artery flow pattern is normal. Hydrops Assessment Very small pericardial effusion. No ascites present. No pleuraleffusion(s). Rhythm The rhythm is normal. There is 1:1 AV conduction. Pulmonary Valve The pulmonic valve exhibits normal leaflet mobility. The transpulmonic velocity is within normal range. There is no pulmonic regurgitation. Aortic Valve The aortic valve exhibits normal leaflet mobility. The transaorticvelocity is within normal range. There is no aortic regurgitation. Doppler Measurements (Fetus A) Atrioventricular Valves Name Value Normal Z-ScorePercentile Atrioventricular Valves Doppler TV E Peak Velocity 0.2 m/s TV A Peak Velocity 0.4 m/s MV E Peak Velocity 0.3 m/s MV A Peak Velocity 0.6 m/s (Fetus A) Semilunar Valves Name Value Normal Z-ScorePercentile Semilunar Valves Doppler PV Peak Velocity 0.8 m/s AV Peak Velocity () 1.2 m/s (Fetus A) Heart Rate Name Value Normal Z-ScorePercentile Heart Rate HR 143 bpm Report Signatures Finalized by Alycia Diana MD on 04/06/2023 03:51 PM Alycia Diana MD ECHO CUPID * HIV-1 HIV-2 ANTIBODY + HIV P24 AG PANEL (04/01/2023 12:39 PM CDT) [facility] HIV1/2 Ab + P24 Ag Non Reactive Non Reactive 04/01/2023 1:34 PM CDT [facility] Blood BLOOD SPECIMEN / Unknown Venipuncture / Unknown 04/01/2023 12:39 PM CDT 04/01/2023 12:54 PM CDT Narrative [facility] - 04/01/2023 1:34 PM CDT No Laboratory evidence of HIV infection. Coretta Duran MD LAB - CHEMISTRY JOZEF REES [facility] [address] [place] [address] * (ABNORMAL) SLIDE SCAN HEMATOLOGY (04/01/2023 12:39 PM CDT) [facility] WBC Morph Normal 04/01/2023 1:33 PM CDT [facility] RBC Morphology Normal 04/01/2023 1:33 PM CDT [facility] Platelet Estimation Normal Normal, Adequate platelets 04/01/2023 1:33 PM CDT [facility] Clumped Platelets 1+(A) None 04/01/2023 1:33 PM CDT [facility] Blood BLOOD SPECIMEN / Unknown Venipuncture / Unknown 04/01/2023 12:39 PM CDT 04/01/2023 12:54 PM CDT Coretta Duran MD LAB - HEMATOLOGY ORD ERABLES [facility] [address] [place] [address] * SONOGRAM - COMPLETE (04/01/2023 11:15 AM CDT) Only the most recent of4 resultswithin the time period is included. Anatomical Region Laterality Modality Other 04/01/2023 11:1 5 AM CDT Narrative 04/01/2023 12:37 PM CDT [facility] PHONE: FAX: Pat. Name: VENUS GALLARDO Pat. No: [id number] Study Date: 04/01/2023 11:15am , Age: 03 1995, 28 Pregnancies: 4, Para 2102 Height: 65 in Weight: 213 lb LMP: 09/18/2022 GA by LMP: 27w6d GA by Base: 27w6d SYDNEY: 06/25/2023 GA by US: 28w5d SYDNEY: 06/19/2023 GA Selected: 27w6d (From [facility]) SYDNEY: 06/25/2023 Referring MD: Marci Alfredo MD Outside Residential Sales Professional: Cathy Peterson RDMS CPT4: 75774 BMI: 35.44 Hist/Ind: Small pericardial effusion, suspected physiologic A2GDM Pericardial effusion from outside Hx IUFD at 22weeks NIPT: Low-risk Obesity x 3 Completed anatomy scan MEASUREMENTS & AGE GROWTH EVALUATION Measurement GA Range Srce %for GA Ratios ----- ---- ------- BPD 7.3 cm 29w2d ([id number]) Hadl BPD 81% FL/BPD 0.72 (0.71 - 0.87) HC 27.0 cm 29w3d ([id number]) Hadl HC 69% FL/AC 0.20 (0.20 - 0.24* AC 26.7 cm 30w5d (63t3g-07k0n) Hadl AC 98% HC/AC 1.01 (1.00 - 1.18) FL 5.2 cm 27w6d (44a1k-57t9p) Hadl FL 35% CI 0.77 (0.70 - 0.86) GA for sonogram 28w5d ([id number]) Weight Estimate: based on (BPD,HC,AC,FL) [place] Weight: 1423 gm (1215-1631gm) Had : 3lbs, 2oz Normal: 1186 gm (890-1483gm) Hadl Wt% 94% for 27w6d Heart Rate: 142 bpm Amniotic Fluid Index: 17.3cm (Deepest [place]) EVAL, PLACENTA Presentation: cephalic Placenta: posterior Heart Rate: 142 bpm Amniotic Fluid Volume: normal CLINICAL SUMMARY A single fetus is seen in cephalic presentation. The measurements today are consistent with large for gestational age, with accelerated growth/size of the AC. The SYDNEY is based on LMP. The amniotic fluid volume is within normal limits. A small amount of pericardial fluid is again demonstrated, measuring 0.3 cm today at the greatest diameter (in diastole), which is slightly increased compared to prior exams (1-2 mm previously). No other abnormalities were noted today on limited cardiac assessment. IMPRESSION: Single, live, intrauterine at 27w6d size is large for gestational age (LGA), with accelerated growth/size of the AC Amniotic fluid volume: within normal limits Small pericardial effusion, slightly increased compared to prior exam RECOMMEND: Ultrasound in 4 weeks for growth assessment and to begin twice weekly testing. Given the chronicity of the pericardial fluid, slight increase to >2 mm now, and other comorbidities such as gestational diabetes, prior IUFD, and obesity, I would recommend a echocardiogram as well, with Pediatric Cardiology. A referral will be placed. Thank you for allowing us the opportunity to care for your patient. Leticia Villa MD <Electronic Signature> 04/01/2023 12:35pm Jonah Freeman MD [facility] ORDERABLES * (ABNORMAL) GTT 3 HR (100G) GESTATIONAL DIAGNOSTIC (02/09/2023 1:35 PM CDT) Glucose Dose Gestational 100 gm 02/09/2023 2:47 PM CDT [facility] Gestational GTT Fasting 96 70 - 105 mg/dL 02/09/2023 2:47 PM CDT [facility] Gestational GTT 1 HR 191(H) 54 - <180 mg/dL 02/09/2023 2:47 PM CDT [facility] Gestational GTT 2 HR 171(H) 54 - <155 mg/dL 02/09/2023 2:47 PM CDT [facility] Gestational GTT 3 HR 115 54 - <140 mg/dL 02/09/2023 2:47 PM CDT [facility] Blood BLOOD SPECIMEN / Unknown Venipuncture / Unknown 02/09/2023 1:35 PM CDT 02/09/2023 10:58 AM CDT Milagros Manjarrez MD LAB - CHEMISTRY AMARIE CABRERA [facility] Organization Address City/State/ZIP Co de Phone Number [facility] [address] [place] [address] * (ABNORMAL) LUPUS ANTICOAGULANT PANEL (02/03/2023 1:10 PM CDT) APTT 28.3 23.0 - 38.4 Seconds 02/05/2023 10:45 [address] [facility] PT 12.0(L) 12.1 - 14.8 Seconds 02/05/2023 10:45 AM [facility] INR 0.9 See Comment 02/05/2023 10:45 AM [facility] Buffer 40.9 Seconds 023 10:45 AM [facility] Phospholipid 38.2 Seconds 02/05/2023 10:45 AM [facility] Delta 2.7 <8.0 Seconds 02/05/2023 10:45 AM [facility] Interpretation [facility] Negative 02/05/2023 10:45 AM [facility] Comment:Up to 15-20% of rosario ents with lupus anticoagulant associated with antiphospholipid antibody syndrome (APAS) will have negative [facility] results. For these patients we recommend additional testing to include the Dilute Dario Viper Venom Time (DRVVT) test. Immunoassay measurements of anti-cardiolipin and anti-beta-2 glycoprotein 1 are recommended if the DRVVT, and [facility] tests are negative and there is clinical suspicion of APAS. Blood BLOOD SPECIMEN / Unknown Venipuncture / Unknown 02/03/2023 1:10 PM CDT 02/03/2023 1:26 PM CDT Milagros Manjarrez MD LAB - HEMATOLOGY ORD ERABLES [facility] [address] [place] [address], [facility] [phone] * (ABNORMAL) CARDIOLIPIN ANTIBODY IGG/IGM PANEL (02/03/2023 1:10 PM CDT) [facility] Cardiolipin Antibody IgG <9 0 - 14 GPL U/mL 02/05/2023 2:10 PM CDT [facility] Comment: Negative: <15 Indeterminate: 15 - 20 Low-Med Positive: >20 - 80 High Positive: >80 Cardiolipin Antibody IgM 20(H) 0 - 12 MPL U/mL 02/05/2023 2:10 PM CDT [facility] Comment: Negative: <13 Indeterminate: 13 - 20 Low-Med Positive: >20 - 80 High Positive: >80 Blood BLOOD SPECIMEN / Unknown Venipuncture / Unknown 02/03/2023 1:10 PM CDT 02/03/2023 1:26 PM CDT Narrative [facility]) - 02/05/2023 2:10 PM CDT Performed at: - [address] [id number] [place]: Genaro Moraes PhD, Phone: [phone] Milagros Manjarrez MD LAB - SEROLOGY ORDER HAWK [facility] [address] [place] [address] * BETA-2 GLYCOPROTEIN 1 ANTIBODY IGG/IGM PANEL (02/03/2023 1:10 PM CDT) [facility] Beta-2 Glycoprotein I Antibody IgG <9 0 - 20 GPI IgG units 02/05/2023 6:08 PM CDT [facility] Comment: The reference interval reflects a 3SD or 99th percentile interval, which is thought to represent a potentially clinically significant result in accordance with the International Consensus Statement on the classification criteria for definitive antiphospholipid syndrome (APS). J Thromb Haem 2006;4:295-306. Beta-2 Glycoprotein I Antibody IgM <9 0 - 32 GPI IgM units 02/05/2023 6:08 PM CDT [facility] Comment: The reference interval reflects a 3SD or 99th percentile interval, which is thought to represent a potentially clinically significant result in accordance with the International Consensus Statement on the classification criteria for definitive antiphospholipid syndrome (APS). J Thromb Haem 2006;4:295-306. Blood BLOOD SPECIMEN / Unknown Venipuncture / Unknown 02/03/2023 1:10 PM CDT 02/03/2023 1:26 PM CDT Narrative [facility]) - 02/05/2023 6:08 PM CDT Performed at: [address] [place] [id number] [place]: Bryce Davis MD, Phone: [phone] Milagros Manjarrez MD LAB - CHEMISTRY ORDE CABRERA Performing Organization Address [facility]/State/[facility] Co de Phone Number [facility] [address] [place] [address] * PROTEIN CREATININE RATIO URINE RANDOM PNL (02/03/2023 1:10 PM CDT) Only the most recent of2 resultswithin the time period is included. Protein Urine 11.6 <11.9 mg/dL 02/03/2023 2:03 PM CDT [facility] Creatinine Urine 173.42 mg/dL 02/03/2023 2:03 PM CDT [facility] Protein/Creatin ine Ratio Urine 0.07 02/03/2023 2:03 PM CDT [facility] Urine URINE SPECIMEN OBTAINED BY CLEAN CATCH PROCEDURE / Unknown Collection / Unknown 02/03/2023 1:10 PM CDT 02/03/2023 1:27 PM CDT Milagros Manjarrez MD LAB - URINE CHEMISTR Y ORDERABLES [facility] [address] [place] [address] * (ABNORMAL) COMPREHENSIVE METABOLIC PANEL (02/03/2023 1:07 PM CDT) Only the most recent of2 resultswithin the time period is included. Glucose 146(H) 70 - 105 mg/dL 02/03/2023 2:10 PM CDT [facility] Sodium 135(L) 136 - 145 mmol/L 02/03/2023 2:10 PM CDT [facility] Potassium 3.2(L) 3.5 - 5.1 mmol/L 02/03/2023 2:10 PM CDT [facility] Chloride 107 98 - 107 mmol/L 02/03/2023 2:10 PM CDT [facility] CO2 17(L) 23 - 31 mmol/L 02/03/2023 2:10 PM CDT [facility] Calcium 9.5 8.4 - 10.4 mg/dL 02/03/2023 2:10 PM CDT [facility] Anion Gap 11 8 - 18 mmol/L 02/03/2023 2:10 PM CDT [facility] BUN 7 7 - 18.7 mg/dL 02/03/2023 2:10 PM CDT [facility] Creatinine 0.61 0.57 - 1.11 mg/dL 02/03/2023 2:10 PM CDT [facility] Alkaline Phosphatase 90 40 - 150 U/L 02/03/2023 2:10 PM CDT [facility] ALT 97(H) 0 - 61 U/L 02/03/2023 2:10 PM CDT [facility] AST 52(H) 5 - 34 U/L 02/03/2023 2:10 PM CDT [facility] Protein Total 7.5 6.4 - 8.3 gm/dL 02/03/2023 2:10 PM CDT [facility] Albumin 3.8 3.5 - 5.2 gm/dL 02/03/2023 2:10 PM CDT [facility] Bilirubin Total 0.4 0.2 - 1.2 mg/dL 02/03/2023 2:10 PM CDT [facility] eGFR by CKD-EPI >90 >=90 mL/min/1.7 3 m2 02/03/2023 2:10 PM CDT [facility] Blood BLOOD SPECIMEN / Unknown Venipuncture / Unknown 02/03/2023 1:07 PM CDT 02/03/2023 1:26 PM CDT Milagros Manjarrez MD LAB - CHEMISTRY JOZEF REES Performing Organization Address City/[facility]/ZIP Co de Phone Number [facility] [address] [place] [phone] * (ABNORMAL) GLUCOSE CHALLENGE (02/03/2023 1:07 PM CDT) Glucose Challenge 146(H) 64 - 140 mg/dL 02/03/2023 2:09 PM CDT [facility] Glucose Challenge Time 02/03/2023 2:09 PM CDT [facility] Blood BLOOD SPECIMEN / Unknown Venipuncture / Unknown 02/03/2023 1:07 PM CDT 02/03/2023 1:26 PM CDT Milagros Manjarrez MD LAB - CHEMISTRY JOZEF REES Performing Organization Address [facility] [facility] Co de Phone Number [facility] [address] [place] [address] * GLUCOSE PROTEIN KETONE URINE - POINT OF CAR (07/15/2016 12:15 PM CDT) Only the most recent of3 resultswithin the time period is included. Glucose UA neg Negative [facility] Protein UA neg Negative [facility] Ketone UA 1+ Negative [facility] QC Verified Yes Yes [facility] POC T TESTING Urine specimen (specimen) URINE / Unknown 07/15/2016 12:15 PM CDT Marleni Rosales MD LAB - POINT OF CARE ORDERABLES Performing Organization Address [facility]/ZIP Co de Phone Number [facility] [address] [place] [phone] [place] [address] * IMAGING/RADIOLOGY/XRAY RESULTS ORDER (12/16/2014 8:14 AM MANGLE OPERATOR [employer]AR[employer]) Anatomical Region Laterality Modality Other Narrative 12/16/2014 8:14 AM MANGLE OPERATOR [employer]ARMENTS Ordered by an unspecified provider. Scanned Document IMAGING * LAB HISTORICAL RESULTS-ONBASE (11/06/2013) Only the most recent of2 resultswithin the time period is included. 11/06/2013 Narrative [facility] - 11/08/2013 8:20 AM MANGLE OPERATOR GARMENTS Historical Provider LAB - CHEMISTRY O RDERABLES Performing Organization Address [facility] Co de Phone Number [facility] [address] [place] [address], [facility] * PROTEIN CREATININE RATIO URINE TIMED PNL (11/03/2013 10:09 PM MANGLE OPERATOR [employer]ARMENTS) Volume 24 Hour Urine 2,770 mL 11/03/2013 11:43 PM MANGLE OPERATOR [employer] [facility] Collection Time Hours 24 hrs 11/03/2013 11:43 PM [facility] Protein Urine 8.1 mg/dL 11/03/2013 11:43 PM [facility] Creatinine Urine 55.69 mg/dL 11/03/2013 11:43 PM [facility] Protein/Creatin ine Ratio Urine 0.15 11/03/2013 11:43 PM [facility] Urine TIMED URINE SPECIMEN / Unknown Collection / Unknown 11/03/2013 10:09 PM MANGLE OPERATOR [employer] 11/03/2013 10:55 PM MANGLE OPERATOR [employer] Margarita Chisholm MD LAB - URINE CHEMISTR Y ORDERABLES [facility] [address] [place] [address] * PROTEIN URINE TIMED QUANTITATIVE (11/03/2013 10:09 PM MANGLE OPERATOR [employer]ARMENTS) Volume 24 Hour Urine 2,770 mL 11/03/2013 11:43 PM MANGLE OPERATOR [employer] [facility] Collection Time Hours 24 hrs 11/03/2013 11:43 PM [facility] Protein 24 Hour Urine 224 42 - 225 mg/24hr 11/03/2013 11:43 PM [facility] Protein Urine 8.1 mg/dL 11/03/2013 11:43 PM [facility] Urine TIMED URINE SPECIMEN / Unknown Collection / Unknown 11/03/2013 10:09 PM MANGLE OPERATOR [employer]AR[employer] 11/03/2013 10:55 PM MANGLE OPERATOR [employer]ARMENTS Margarita Chisholm MD LAB - URINE CHEMISTR Y ORDERABLES Performing Organization Address [facility] Co de Phone Number [facility] [address] [place] [address] * (ABNORMAL) CREATININE CLEARANCE URINE TIMED (11/03/2013 10:09 PM [facility]) Pathologist [facility] Volume 24 Hour Urine 2,770 mL 11/03/2013 11:43 PM [facility] Collection Time Hours 24 hrs 11/03/2013 11:43 PM [facility] Height Inches 63 inches 11/03/2013 11:43 PM [facility] Weight in Pounds 217 pounds 11/03/2013 11:43 PM [facility] Surface Area 2.00 11/03/2013 11:43 PM [facility] Creatinine 0.32(L) 0.50 - 1.30 mg/dL 11/03/2013 11:43 PM [facility] Creatinine Urine 55.69 mg/dL 11/03/2013 11:43 PM [facility] Creatinine 24 Hour Urine 1,543 800 - 1,800 mg/24hr 11/03/2013 11:43 PM [facility] Creatinine Clearance 335(H) 87 - 107 mL/min/1.73 m2 11/03/2013 11:43 PM [facility] Urine TIMED URINE SPECIMEN / Unknown Collection / Unknown 11/03/2013 10:09 PM MANGLE OPERATOR [employer] 11/03/2013 10:55 PM MANGLE OPERATOR [employer]AR[employer] Margarita Chisholm MD LAB - URINE CHEMISTR Y ORDERABLES [facility] [address] [place] [address] * BLOOD TYPE VERIFICATION (11/02/2013 10:19 PM MANGLE OPERATOR [employer]ARMENTS) ABO O 11/02/2013 11:54 PM [facility] Rh Type Positive 11/02/2013 11:54 PM [facility] Blood Bank BLOOD SPECIMEN / Unknown Venipuncture / Unknown 11/02/2013 10:19 PM [facility] 11/02/2013 11:34 PM MANGLE OPERATOR [employer] Gerry Vern Dorman MD LAB - BLOOD BANK ORD ERABLES [facility] * (ABNORMAL) URINALYSIS ROUTINE W/REFLEX TO CULTURE (11/02/2013 9:59 PM MANGLE OPERATOR [employer]AR[employer]) Color UA Yellow Straw, Yellow, Dark Yellow 11/02/2013 10:21 PM [facility] Clarity UA Cloudy 11/02/2013 10:21 PM [facility] Specific [place] UA 1.014 1.005 - 1.030 11/02/2013 10:21 PM [facility] pH UA 7.0 5.0 - 8.0 pH 11/02/2013 10:21 PM [facility] Protein UA Negative Negative 11/02/2013 10:21 PM [facility] Blood UA Negative Negative 11/02/2013 10:21 PM [facility] Leukocyte UA Negative Negative 11/02/2013 10:21 PM [facility] Nitrite UA Negative Negative 11/02/2013 10:21 PM [facility] Glucose UA 2+(A) Negative 11/02/2013 10:21 PM [facility] Ketone UA Negative Negative 11/02/2013 10:21 PM [facility] Bilirubin UA Negative Negative 11/02/2013 10:21 PM [facility] Urobilinogen UA 1.0 0.1 - 1.0 EU/dL 11/02/2013 10:21 PM [facility] WBC UA Auto 5-10(A) 0-2, 2-5 #/hpf 11/02/2013 10:21 PM [facility] Epithelial Cell UA Auto 5-10(A) 0-2, 2-5 #/hpf 11/02/2013 10:21 PM [facility] Bacteria UA Auto 2+(A) None seen 11/02/2013 10:21 PM [facility] Urine Microscopy Urine microscopy to follow 11/02/2013 10:21 PM [facility] Reflex Status Culture not indicated 11/02/2013 10:21 PM [facility] Urine URINE SPECIMEN OBTAINED BY CLEAN CATCH PROCEDURE / Unknown Collection / Unknown 11/02/2013 9:59 PM MANGLE OPERATOR [employer]ARMENTS 11/02/2013 10:08 PM MANGLE OPERATOR GARMENTS Nuris Morales MD LAB - URINALYSIS O JEISON Performing Organization Address [facility] Co de Phone Number [facility] [address] [place] [phone] * URINALYSIS MICROSCOPIC ONLY W/REFLEX CULTURE (11/02/2013 9:59 PM MANGLE OPERATOR GARMENTS) RBC UA 0-2 0-2, 2-5 # /hpf 11/02/2013 10:35 PM MANGLE OPERATOR [employer]ARMENTS [facility] Mucus UA Trace 11/02/2013 10:35 PM MANGLE OPERATOR [employer]ARMENTS [facility] Hyaline Casts 0-2 0 - 2 # /lpf 11/02/2013 10:35 PM MANGLE OPERATOR GARMENTS [facility] Urine URINE SPECIMEN OBTAINED BY CLEAN CATCH PROCEDURE / Unknown 11/02/2013 9:59 PM MANGLE OPERATOR GARMENTS 11/02/2013 10:08 PM MANGLE OPERATOR GARMENTS Nuris Morales MD LAB - URINALYSIS O JEISON Performing Organization Address [facility] Co de Phone Number [facility] [address] [place] [phone] * URIC ACID BLOOD (11/02/2013 8:48 PM MANGLE OPERATOR GARMENTS) Uric Acid 2.8 2.5 - 6.2 mg/dL 11/02/2013 9:23 PM MANGLE OPERATOR [employer]AR[employer] [facility] Comment: Blood BLOOD SPECIMEN / Unknown Venipuncture / Unknown 11/02/2013 8:48 PM MANGLE OPERATOR GARMENTS 11/02/2013 8:57 PM MANGLE OPERATOR GARMENTS Nuris Morales MD LAB - CHEMISTRY OR DERABLES Performing Organization Address [facility] Co de Phone Number [facility] [address] [place] [phone] * LDH BLOOD (11/02/2013 8:48 PM MANGLE OPERATOR GARMENTS) LDH 156 100 - 200 U/L 11/02/2013 9:23 PM MANGLE OPERATOR [employer]AR[employer] [facility] Comment: Blood BLOOD SPECIMEN / Unknown Venipuncture / Unknown 11/02/2013 8:48 PM MANGLE OPERATOR GARMENTS 11/02/2013 8:57 PM MANGLE OPERATOR GARMENTS Nuris Morales MD LAB - CHEMISTRY OR DERABLES [facility] [address] [place] [address] * FIBRONECTIN (10/04/2013 3:30 PM MANGLE OPERATOR GARMENTS) Only the most recent of5 resultswithin the time period is included. Fibronectin Negative Negative 10/04/2013 5:38 PM MANGLE OPERATOR GARMENTS [facility] Fluid ENTIRE VAGINA / Unknown 10/04/2013 3:30 PM MANGLE OPERATOR GARMENTS 10/04/2013 4:58 PM MANGLE OPERATOR GARMENTS Narrative [facility] - 10/04/2013 5:38 PM MANGLE OPERATOR GARMENTS FFN COMMENT: Positive - Indicates the presence of secretions that will result in delivery in less than or equal to 7 to 14 days from collection in symptomatic women. Negative - Indicates the absence of secretions that will result in delivery in less than or equal to 7 to 14 days from collection in symptomatic women. Indeterminate - The specimen does not meet internal acceptance on the initial and repeat testing. The Rapid fFN result should not be interpreted as absolute evidence for the presence or absence of a process that will result in delivery in less than or equal to 7 to 14 days from specimen collection in symptomatic women or delivery in less than or equal to 34 weeks, 6 days in asymptomatic women evaluated between 22 weeks, 0 days and 30 weeks, 6 days of gestation. A positive fFN result may be observed for patients who have experienced cervical disruption caused by, but not limited to, events such as sexual intercourse, digital cervical examination, or vaginal probe ultrasound. The Rapid fFN result should always be used inconjuction with information available from the clinical evaluation of the patient and other diagnostic procedures such as cervical examination, cervical microbiological culture, assessment of uterine activity, and evaluation of other risk factors. Patients taking [id number] may show falsely elevated levels of Homocysteine. Patients taking methotrexate, nicotinic acid, theophylline, nitrous oxide, or L- dopa can have falsely elevated Homocysteine levels. Heterophilic antibodies in human serum can react with reagent immunoglobulins, interfering with in vitro immunoassays. Patients routinely exposed to animals or to animal serum products can be prone to this interference and anomalous values may be observed. Additional information may be required for diagnosis. Cb Mccullough MD LAB - BODY FLUID ORD ERABLES [facility] [address] [place] [address]
[2024-11-26 09:00] VITALS: BP 148/88; PULSE 88; RESP 16; TEMP 36.6; O2SAT 98
[2024-11-26 09:03] LABS: Alanine Aminotransferase 14 U/L (6-35); Albumin Level 4.3 g/dL (3.5-5.1); Alkaline Phosphatase 95 U/L (38-126); Anion Gap 11 mmol/L (4-12); Aspartate Amino Transferase 17 U/L (14-36); Bilirubin,Total 0.8 mg/dL (0.2-1.3); Blood Urea Nitrogen 13 mg/dL (7-17); Calcium 9.3 mg/dL (8.4-10.2); Carbon Dioxide 25 mmol/L (22-30); Chloride 107 mmol/L (98-107); Estimated CRCL calculation 130 ml/min; Estimated Glomerular Filt Rate > 60; Glucose 112 mg/dL (65-110); Magnesium 1.9 mg/dL (1.6-2.3); Potassium 3.5 mmol/L (3.4-5.0); Sodium 143 mmol/L (137-145)
[2024-11-26 09:13] LABS: INR 0.9; Prothrombin Time 12.9 Seconds (11.1-14.7)
[2024-11-26 09:14] LABS: Partial Thromboplastin Time 24.4 Seconds (22.3-36.8)
[2024-11-26 09:17] LABS: Influenza A QL RT-PCR Negative (Negative); Influenza B QL RT-PCR Negative (Negative); RSV RNA, RT-PCR Negative (Negative); SARS-CoV-2 RNA PCR Positive (Negative)
[2024-11-26] MEDS: SODIUM CHLORIDE 0.9% IV 1,000 ML 999 ML IV CONT (09:29)
[2024-11-26 09:34] LABS: Thyroid Stimulating Hormone Reflex 0.929 uIU/mL (0.465-4.68)
[2024-11-26 10:00] VITALS: BP 152/90; PULSE 90; RESP 16; TEMP 36.6; O2SAT 98
[2024-11-26 10:25] VITALS: BP 150/88; PULSE 88; RESP 16; TEMP 36.6; O2SAT 100
== END 2024-11-26 10:31 | disposition home or self-care (01) ==
PROVIDERS: Emergency Provider Emergency Medicine
DX: U07.1 COVID-19 (principal); R00.2 Palpitations
CPT/HCPCS: 36415; 80053; 83735; 84443; 85025; 85610; 85730; 87637; 93005; 96360; 99283; J7030